=== PATIENT | female | born 1980 | race Caucasian/White ===

== ENCOUNTER → 2020-12-04 15:08 | Outpatient (BNVA) | payer OTHER, SELFPAY | PROVIDERS: PCP Internal Medicine; Visit Provider Obstetrics & Gynecology | DX: R32 Unspecified urinary incontinence (principal) | CPT/HCPCS: 81003; 99212 ==

== ENCOUNTER 2021-02-26 11:38 | Outpatient (REF) | payer OTHER, SELFPAY ==
[2021-02-26 12:48] LABS: MANUAL DIFF FLAG NO
[2021-02-26 13:00] LABS: Basophils Percent Auto 0.3 % (0-2); Eosinophils Absolute Auto 0.1 X10*3/uL (0.0-0.4); Eosinophils Percent Auto 3.7 % (0-4); Hematocrit 36.7 % (37-47); Hemoglobin 11.8 g/dl (12.0-16.0); Lymphocytes Absolute Auto 1.6 X10*3/uL (1.2-4.9); Lymphocytes Percent Auto 46.8 % (20-40); Mean Corpuscular HGB Conc 32.2 g/dl (31.0-35.0); Mean Corpuscular Hemoglobin 28.9 pg (27.0-33.0); Mean Platelet Volume 11.9 fL (9.4-12.3); Monocytes Absolute Auto 0.2 X10*3/uL (0.1-1.2); Monocytes Percent Auto 6.6 % (2-11); Neutrophils Absolute Auto 1.5 X10*3/uL (2.0-8.3); Neutrophils Percent Auto 42.6 % (45-73); Platelet Count 175 X10*3/uL (160-400); Red Blood Count 4.08 X10*6/uL (4.20-5.50); White Blood Count 3.5 X10*3/uL (4.8-10.8)
== END 2021-02-26 11:39 | disposition home or self-care (01) ==
LOC: HO.LAB 11:38
PROVIDERS: PCP Internal Medicine; Visit Provider Internal Medicine
DX: K62.5 Hemorrhage of anus and rectum (principal)
CPT/HCPCS: 36415; 85025

== ENCOUNTER 2021-05-26 13:02 | Outpatient (REF) | payer OTHER, SELFPAY ==
[2021-05-27 02:51] LABS: CT PCR NOT DETECTED (Not Detect.); NG PCR NOT DETECTED (Not Detect.)
[2021-05-27 10:14] LABS: BV Int Neg Control Negative (Negative); BV Int Pos Control Positive (Positive)
[2021-05-29 00:21] LABS: HPV mRNA E6/E7 rflx Not Detected (Not Detected)
== END 2021-05-26 13:03 | disposition home or self-care (01) ==
LOC: HO.LAB 13:02
PROVIDERS: PCP Internal Medicine; Visit Provider Advanced Practice Midwife
DX: Z01.419 Encounter for gynecological examination (general) (routine) without abnormal findings (principal); Z11.51 Encounter for screening for human papillomavirus (HPV); Z11.3 Encounter for screening for infections with a predominantly sexual mode of transmission; N92.0 Excessive and frequent menstruation with regular cycle; Z20.2 Contact with and (suspected) exposure to infections with a predominantly sexual mode of transmission
CPT/HCPCS: 87480; 87491; 87510; 87591; 87624; 87660; 88142

== ENCOUNTER 2021-06-15 11:23 | Outpatient (REF) | payer OTHER, SELFPAY ==
--- NOTE | ~2021-06-15 | US_ITS ---
EXAMINATION: US PELVIS CLINICAL INFORMATION: Excessive and frequent menstruation COMPARISON: Previous pelvic ultrasound October 2019 TECHNIQUE: Ultrasound of the pelvis is performed using both transabdominal and transvaginal transducers along with Doppler. Transvaginal imaging is performed due to inadequate visualization transabdominally. FINDINGS: The uterus is anteverted and measures 7.9 x 3.7 x 5 cm in dimension. There is a 4 x 4 by 5 mm hyperechoic lesion in the posterior uterine body probably representing a small fibroid. This is unchanged from previous exam. No other focal uterine lesion is seen. Endometrial thickness is normal measuring 0.6 cm. The cervix is normal appearing. The ovaries are normal. The right ovary measures 2.1 x 1.3 x 1.9 cm. The left ovary measures 1.8 x 1.3 x 1.3 cm. There is no fluid in the pelvis. US/US pelvic and transvaginal IMPRESSION: Small uterine fibroid otherwise unremarkable exam.
== END 2021-06-15 11:24 | disposition home or self-care (01) ==
LOC: HO.US 11:23
PROVIDERS: PCP Internal Medicine; Visit Provider Advanced Practice Midwife
DX: N92.0 Excessive and frequent menstruation with regular cycle (principal)
CPT/HCPCS: 76830; 76856

== ENCOUNTER 2021-06-29 09:02 | Outpatient (REF) | payer OTHER, SELFPAY ==
[2021-06-29 10:55] LABS: Hematocrit 36.7 % (37-47); Hemoglobin 12.2 g/dl (12.0-16.0); Mean Corpuscular HGB Conc 33.2 g/dl (31.0-35.0); Mean Corpuscular Hemoglobin 29.8 pg (27.0-33.0); Mean Corpuscular Volume 89.5 fL (80-98); Platelet Count 193 X10*3/uL (160-400); Red Cell Distribution Width 11.9 % (11.0-16.0)
[2021-06-29 13:25] LABS: Thyroid Stimulating Hormone 1.12 uIU/mL (0.32-4.0)
== END 2021-06-29 09:03 | disposition home or self-care (01) ==
LOC: HO.LAB 09:02
PROVIDERS: PCP Internal Medicine; Visit Provider Advanced Practice Midwife
DX: N93.9 Abnormal uterine and vaginal bleeding, unspecified (principal); N92.0 Excessive and frequent menstruation with regular cycle
CPT/HCPCS: 36415; 58100; 81025; 84443; 85027; 88305

== ENCOUNTER → 2021-07-13 11:14 | Outpatient (BNVA) | payer OTHER, SELFPAY | PROVIDERS: Visit Provider Advanced Practice Midwife ==

== ENCOUNTER 2021-09-09 11:41 | Outpatient (REF) | payer OTHER, SELFPAY ==
[2021-09-09 12:10] LABS: MANUAL DIFF FLAG NO
--- NOTE | 2021-09-09 12:16 | ECG_ITS ---
Test Reason : PREOP Blood Pressure : / mmHG Vent. Rate : 070 BPM Atrial Rate : 070 BPM P-R Int : 136 ms QRS Dur : 086 ms QT Int : 406 ms P-R-T Axes : 075 -30 051 degrees QTc Int : 438 ms Normal sinus rhythm Left axis deviation Possible Lateral infarct , age undetermined Abnormal ECG When compared with ECG of 28-NOV-2012 10:44, No significant change was found Referred By: Braydon Maddox Electronically Signed By:LES BELCHER MD
[2021-09-09 12:17] LABS: Basophils Percent Auto 0.3 % (0-2); Eosinophils Absolute Auto 0.2 X10*3/uL (0.0-0.4); Eosinophils Percent Auto 4.2 % (0-4); Hematocrit 38.3 % (37.0-47.0); Hemoglobin 12.2 g/dl (12.0-16.0); Imm Gran Abs Auto 0.01 X10*3/uL (0.00-0.03); Imm Gran Pct Auto 0.3 % (0.0-0.4); Lymphocytes Absolute Auto 1.7 X10*3/uL (1.2-4.9); Lymphocytes Percent Auto 48.5 % (20-40); Mean Corpuscular HGB Conc 31.9 g/dl (31.0-35.0); Mean Corpuscular Hemoglobin 29.2 pg (27.0-33.0); Mean Corpuscular Volume 91.6 fL (80.0-98.0); Monocytes Absolute Auto 0.2 X10*3/uL (0.1-1.2); Monocytes Percent Auto 6.7 % (2-11); Neutrophils Absolute Auto 1.4 x10*3/uL (2.0-8.3); Platelet Count 215 X10*3/uL (160-400); Red Blood Count 4.18 X10*6/uL (4.20-5.50); Red Cell Distribution Width 12.2 % (11.0-16.0); White Blood Count 3.6 X10*3/uL (4.8-10.8)
[2021-09-09 12:25] LABS: INTERNATIONAL NORM RATIO 1.1 (0.9-1.1); Prothrombin Time 12.6 SEC (9.9-13.0)
[2021-09-09 12:27] LABS: Partial Thromboplastin Time 38.3 SEC (24.1-38.0)
[2021-09-09 12:46] LABS: Appearance Urine CLEAR; Color Urine YELLOW; Glucose Urine UA NEG (NEG); Leukocyte Esterase Urine NEG (NEG); Nitrite Urine NEG (NEG); Specific Gravity - Urine 1.025 (1.005-1.025); UACC Culture Trigger NO; Urine Blood 2+ (NEG); Urine Ketones NEG (NEG); Urine Protein NEG (NEG-TRACE)
[2021-09-09 12:52] LABS: Blood Urea Nitrogen 13 mg/dL (9-16); Estimated Glomerular Filt Rate > 60
[2021-09-09 12:58] LABS: RBC Urine 0-2 /HPF (0); Squamous Epithelial Cell Urine 1+ /LPF
[2021-09-09 12:59] LABS: WBC Urine 0 /HPF (0-4)
[2021-09-09 13:07] LABS: Erythrocyte Sedimentation Rate 13 MM/HR (0-20)
[2021-09-09 13:14] LABS: Ferritin 42 ng/mL (10-250); HCG Quantitative < 2 mIU/mL; TSH reflex Free T4 0.87 uIU/mL (0.32-4.0)
== END 2021-09-09 11:42 | disposition home or self-care (01) ==
LOC: HO.LAB 11:41
PROVIDERS: Visit Provider Nurse Practitioner Family
DX: Z01.818 Encounter for other preprocedural examination (principal); I10 Essential (primary) hypertension
CPT/HCPCS: 36415; 81001; 82565; 82728; 84443; 84520; 84550; 84702; 85025; 85610; 85652; 85730; 93005

== ENCOUNTER → 2021-11-24 09:36 | Outpatient (BNVA) | payer OTHER, SELFPAY | PROVIDERS: PCP Internal Medicine; Referring Provider Internal Medicine; Visit Provider Internal Medicine | DX: R94.31 Abnormal electrocardiogram [ECG] [EKG] (principal) | CPT/HCPCS: 93005; 99202 ==

== ENCOUNTER 2021-12-31 09:24 | Outpatient (REF) | payer OTHER, SELFPAY ==
[2021-12-31 09:44] LABS: MANUAL DIFF FLAG NO
[2021-12-31 10:02] LABS: Basophils Percent Auto 0.3 % (0-2); Eosinophils Absolute Auto 0.1 X10*3/uL (0.0-0.4); Eosinophils Percent Auto 1.8 % (0-4); Hematocrit 36.9 % (37.0-47.0); Hemoglobin 11.9 g/dl (12.0-16.0); Imm Gran Abs Auto 0.01 X10*3/uL (0.00-0.03); Imm Gran Pct Auto 0.3 % (0.0-0.4); Lymphocytes Absolute Auto 1.5 X10*3/uL (1.2-4.9); Lymphocytes Percent Auto 40.2 % (20-40); Mean Corpuscular HGB Conc 32.2 g/dl (31.0-35.0); Mean Corpuscular Hemoglobin 28.7 pg (27.0-33.0); Mean Corpuscular Volume 89.1 fL (80.0-98.0); Mean Platelet Volume 10.9 fL (9.4-12.3); Monocytes Absolute Auto 0.3 X10*3/uL (0.1-1.2); Monocytes Percent Auto 6.6 % (2-11); Neutrophils Absolute Auto 1.9 x10*3/uL (2.0-8.3); Neutrophils Percent Auto 50.8 % (45-73); Platelet Count 199 X10*3/uL (160-400); Red Blood Count 4.14 X10*6/uL (4.20-5.50); Red Cell Distribution Width 12.4 % (11.0-16.0); White Blood Count 3.8 X10*3/uL (4.8-10.8)
[2021-12-31 10:44] LABS: Alanine Aminotransferase 24 U/L (0-31); Albumin Level 4.2 g/dL (3.5-5.0); Alkaline Phosphatase 106 U/L (39-117); Anion Gap 11 (12-20); Aspartate Amino Transferase 26 U/L (5-31); Bilirubin Total 0.5 mg/dL (0.0-1.0); Blood Urea Nitrogen 14 mg/dL (9-16); Calcium 9.4 mg/dL (8.4-10.2); Carbon Dioxide 26 mmol/L (22-29); Chloride 105 mmol/L (96-108); Cholesterol 146 mg/dL; Estimated Glomerular Filt Rate > 60; Glucose Random 88 mg/dL (60-115); HDL Cholesterol 51 mg/dL; LDL Cholesterol Calculated 86 mg/dl; Potassium 4.7 mmol/L (3.3-5.1); Sodium 137 mmol/L (135-145); Total Protein 7.2 g/dL (6.5-8.0); Triglycerides 46 mg/dL
[2021-12-31 10:54] LABS: Free T4 (Free Thyroxine) 1.11 ng/dL (0.71-1.85); Vitamin D 25-OH Total 31.4 ng/mL (>30)
[2021-12-31 11:23] LABS: Folate 16.4 ng/mL (> or = 4.0); Vitamin B12 523 pg/mL (200-900)
== END 2021-12-31 09:25 | disposition home or self-care (01) ==
LOC: HO.LAB 09:24
PROVIDERS: PCP Internal Medicine; Visit Provider Internal Medicine
DX: E78.00 Pure hypercholesterolemia, unspecified (principal); K21.9 Gastro-esophageal reflux disease without esophagitis
CPT/HCPCS: 36415; 80053; 80061; 82306; 82607; 82746; 84439; 84443; 85025

== ENCOUNTER 2022-01-26 09:17 | Outpatient (REF) | payer OTHER, SELFPAY ==
--- NOTE | ~2022-01-26 | MM_ITS ---
EXAMINATION: MM SCREENING DIGITAL BREAST TOMOSYNTHESIS, BILATERAL CLINICAL INFORMATION: Screening. Asymptomatic. Age 41. No prior breast imaging. No known family history breast cancer. The lifetime risk of breast cancer based on the Tyrer-Cuzick Model is 8%. COMPARISON: None (current study represents initial baseline exam). TECHNIQUE: Digital mammography is performed in craniocaudal and mediolateral oblique views along with computer-aided detection (CAD). Digital breast tomosynthesis is performed in implant-displaced craniocaudal and implant-displaced mediolateral oblique views along with computer-aided detection (CAD). Synthesized 2D images are generated from the tomosynthesis. Additional bilateral implant displaced MLO views are provided. FINDINGS: The breasts are heterogeneously dense, which may obscure small masses (ACR BI-RADS breast composition Category c). There are bilateral implants. Implant contours are smooth. There is no significant mass or architectural abnormality or abnormal calcifications. The axilla and skin contours are unremarkable. MM/MM tomosynthesis screen imp BI IMPRESSION: No mammographic evidence of malignancy. ASSESSMENT: BI-RADS 1: Negative RECOMMENDATION: Routine annual mammography screening. This patient's information was entered into a reminder system with a target due date for their next mammogram.
== END 2022-01-26 09:18 | disposition home or self-care (01) ==
LOC: HO.MAMMO 09:17
PROVIDERS: PCP Internal Medicine; Visit Provider Internal Medicine
DX: Z12.31 Encounter for screening mammogram for malignant neoplasm of breast (principal)
CPT/HCPCS: 77063; 77067

== ENCOUNTER → 2022-07-20 08:59 | Outpatient (BNVA) | payer OTHER, SELFPAY | PROVIDERS: PCP Internal Medicine; Visit Provider Nurse Practitioner Family | DX: G43.909 Migraine, unspecified, not intractable, without status migrainosus (principal); G47.00 Insomnia, unspecified; M47.812 Spondylosis without myelopathy or radiculopathy, cervical region | CPT/HCPCS: 99202 ==

== ENCOUNTER 2022-09-30 08:46 | Outpatient (REF) | payer OTHER, SELFPAY ==
[2022-09-30 11:43] LABS: Hematocrit 38.5 % (37.0-47.0); Hemoglobin 12.4 g/dl (12.0-16.0); Mean Corpuscular HGB Conc 32.2 g/dl (31.0-35.0); Mean Corpuscular Hemoglobin 28.9 pg (27.0-33.0); Mean Corpuscular Volume 89.7 fL (80.0-98.0); Mean Platelet Volume 11.6 fL (9.4-12.3); Platelet Count 236 X10*3/uL (160-400); Red Blood Count 4.29 X10*6/uL (4.20-5.50); Red Cell Distribution Width 12.3 % (11.0-16.0); White Blood Count 5.1 X10*3/uL (4.8-10.8)
[2022-09-30 12:40] LABS: TSH reflex Free T4 1.54 uIU/mL (0.32-4.0)
== END 2022-09-30 08:47 | disposition home or self-care (01) ==
LOC: HO.LAB 08:46
PROVIDERS: PCP Internal Medicine; Visit Provider Advanced Practice Midwife
DX: Z01.419 Encounter for gynecological examination (general) (routine) without abnormal findings (principal); N92.0 Excessive and frequent menstruation with regular cycle; R14.0 Abdominal distension (gaseous); K59.00 Constipation, unspecified; Z97.5 Presence of (intrauterine) contraceptive device
CPT/HCPCS: 36415; 84443; 85027

== ENCOUNTER 2022-09-30 10:19 | Outpatient (REF) | payer OTHER, SELFPAY ==
[2022-09-30 14:29] LABS: CT PCR NOT DETECTED (Not Detect.); NG PCR NOT DETECTED (Not Detect.)
[2022-10-01 14:07] LABS: BV Int Neg Control Negative (Negative); BV Int Pos Control Positive (Positive)
[2022-10-03 18:24] LABS: HPV mRNA E6/E7 rflx Not Detected (Not Detected)
== END 2022-09-30 10:20 | disposition home or self-care (01) ==
LOC: HO.LNP 10:19
PROVIDERS: Visit Provider Advanced Practice Midwife
DX: Z01.419 Encounter for gynecological examination (general) (routine) without abnormal findings (principal); N92.0 Excessive and frequent menstruation with regular cycle
CPT/HCPCS: 0353U; 87480; 87510; 87624; 87660; 88142

== ENCOUNTER 2022-11-17 14:12 | Outpatient (REF) | payer OTHER, SELFPAY ==
--- NOTE | ~2022-11-17 | US_ITS ---
EXAMINATION: US PELVIS CLINICAL INFORMATION: Excessive and frequent menses; the last menstrual period was on 11/03/2022. COMPARISON: Pelvic ultrasound dated 06/15/2021. TECHNIQUE: Ultrasound of the pelvis is performed using both transabdominal and transvaginal transducers along with Doppler. Transvaginal imaging is performed due to inadequate visualization transabdominally. FINDINGS: Uterus: The uterus is anteverted and measures 9.0 x 4.0 x 4.6 cm. The double wall endometrial thickness is 1.0 mm. The uterus is smooth in contour and has normal myometrial echogenicity. No visible fibroid. Adnexa: Both ovaries are visualized. There is normal color flow to the adnexa. There is no ovarian torsion. There is no pelvic ascites or fluid collection. Right ovary measures 2.2 x 1.2 x 2.0 cm, volume 2.9 mL. Left ovary measures 3.2 x 1.8 x 2.9 cm, volume 8.7 mL. A 1.4 x 0.8 x 1.3 cm hemorrhagic left ovarian cyst is seen, with characteristic internal reticulated contents. US/US pelvic and transvaginal IMPRESSION: A 1.4 cm hemorrhagic left ovarian cyst is incidentally noted. The examination is otherwise unremarkable.
== END 2022-11-17 14:13 | disposition home or self-care (01) ==
LOC: HO.US 14:12
PROVIDERS: PCP Internal Medicine; Visit Provider Advanced Practice Midwife
DX: N92.0 Excessive and frequent menstruation with regular cycle (principal)
CPT/HCPCS: 76830; 76856

== ENCOUNTER → 2022-12-03 14:06 | Outpatient (BNVA) | payer OTHER, SELFPAY | PROVIDERS: Visit Provider Advanced Practice Midwife ==

== ENCOUNTER 2022-12-29 09:24 | Emergency (ER) | payer OTHER, SELFPAY ==
[2022-12-29 09:36] VITALS: BP 114/72; PULSE 75; RESP 18; TEMP 37; O2SAT 98; BMI 30.2
--- NOTE | 2022-12-29 09:55 | ED_ITS ---
HPI - General Adult General Chief complaint: General Medical Stated complaint: dizziness/ SOB Time Seen by Provider: 12/29/22 09:55 Source: patient Mode of arrival: ambulatory Limitations: no limitations History of Present Illness HPI narrative: Patient is a 42 year old assigned female at with a history of asthma and seasonal allergies presenting to the emergency department today with congestion for 2 months that has worsened over the past week. Patient states that she has trouble inhaling through her nose but denied SOB or CP. Patient denies any dizziness, lightheadedness, abdominal pain, nausea, vomiting, fever, chills, blurry vision, double vision, loss of vision, chest pain, shortness of breath, back pain, night sweats, pain with urination, increased urinary frequency, increased urinary urgency, blood in her urine or stool, syncope or a near syncopal episode, recent trauma or falls, bowel incontinence, bladder incontinence, bowel retention, bladder retention, or any other complaints at this time. MD complaint: congestion Onset (ago): month(s) (2) Severity: mild Severity scale (1-10): 1 Relieving factors: other (Symbicort inhaler) Exacerbating factors: none Associated symptoms: denies other symptoms Treatments prior to arrival: other (Symbicort inhaler) Related Data Home Medications Medication Instructions Recorded Confirmed fluticasone propionate 50 2 spray intranasal DAILY 11/25/20 07/20/22 mcg/actuation nasal spray,suspension aspirin 81 mg tablet,delayed 81 mg PO .3-4x/week 11/24/21 07/20/22 release Previous Rx's Medication Instructions Recorded fexofenadine 180 mg tablet 180 mg PO DAILY #90 tabs 01/06/21 (Heather Allergy) omeprazole 20 mg capsule,delayed 20 mg PO DAILY 90 days #90 caps 09/09/21 release budesonide-formoterol HFA 160 2 puff inhalation BID #10.2 grams 12/31/21 mcg-4.5 mcg/actuation aerosol inhaler (Symbicort) albuterol sulfate 90 mcg/actuation 2 puff inhalation Q4-6H PRN for 05/19/22 aerosol inhaler (ProAir HFA) muscle spasm #8.5 ea magnesium glycinate 100 mg tablet 200 mg PO DAILY migraine 30 days 07/20/22 #60 tabs amitriptyline 10 mg tablet 10 mg PO BEDTIME for insomnia 30 08/23/22 days #30 tabs ibuprofen 400 mg tablet 400 mg PO Q6H PRN pain #30 tabs 09/21/22 benzonatate 100 mg capsule 100 mg PO BID-TID PRN cough #14 10/13/22 caps polyethylene glycol 3350 17 gram 17 g PO DAILY #100 ea 10/22/22 oral powder packet (Miralax) riboflavin (vitamin B2) 400 mg 400 mg PO DAILY for migraine 30 10/22/22 tablet days #30 tabs cholecalciferol (vitamin D3) 25 25 mcg PO DAILY #90 caps 12/22/22 mcg (1,000 unit) capsule loratadine 10 mg tablet 10 mg PO DAILY PRN allergic 12/29/22 symptoms #14 tabs Allergies Allergy/AdvReac Type Severity Reaction Status Date / Time SEASONAL ALLERGIES Allergy Intermediate ITCHY Uncoded 12/03/22 14:08 EYES/RUNNY NOSE Review of Systems Review of Systems: Yes all other systems are reviewed and are negative Constitutional: Constitutional: Reports no additional constitutional complaints, Denies chills, Denies fever(s) and Denies night sweats Eyes: Eyes: Reports no additional eye complaints, Denies blurry vision, Denies change in vision, Denies diplopia, Denies eye discharge, Denies loss of vision and Denies eye pain ENT: Denies dizziness and Reports nasal congestion Cardiovascular: Cardiovascular: Reports no additional cardiovascular complai nts, Denies chest pain, Denies lightheadedness, Denies Loss of Consciousness and Denies dyspnea Respiratory: Respiratory: Reports no additional respiratory complaints and Denies dyspnea Gastrointestinal: Gastrointestinal: Reports no additional gastrointestinal complaints, Denies abdominal pain, Denies melena, Denies hematochezia, Denies change in bowel habits and Denies change in stool character Genitourinary: Genitourinary: Denies hematuria, Denies urinary frequency, Denies dysuria, Denies urinary incontinence, Denies urinary hesitancy and Denies urinary urgency Musculoskeletal: Musculoskeletal: Reports no additional musculoskeletal complaints, Denies numbness and Denies tingling Neurologic: Denies dizziness, Denies loss of vision, Denies numbness and Denies tingling Psychiatric: Psychiatric: Reports no additional psychiatric complaints Endocrine: Endocrine: Reports no additional endocrine complaints Hematologic/Lymphatic: Hematologic/Lymphatic: Reports no additional hematolog ic/lymphatic complaints Allergic/Immunologic: Allergic/Immunologic: Reports no additional allergic/immunologic complaints PMFSH Past Medical History Attestation statement: The following information was validated with the patient. Source: old records reviewed and nursing notes reviewed Medical History Allergic rhinitis Asthma COVID-19 virus infection GERD (gastroesophageal reflux disease) Intermittent asthma Migraine OAB (overactive bladder) Vaginal prolapse Vitamin D deficiency Surgical History H/O breast augmentation H/O LEEP H/O tubal ligation H/O vaginal surgery S/P panniculectomy Family History Family History Father No problems noted. Mother No problems noted. Maternal Grandmother Diabetes Glaucoma Social History Social History Housing: House Alcohol intake: never Patient Tobacco Use Status: Never used Tobacco e-Cigarette/Vaping Use: Never Used Second Hand Smoke Exposure: No Advance Directives: No service: No Current occupational status: unemployed Cognitive needs: No Hearing needs: No Vision needs: No Physical Exam ED Vital Signs: Vital Signs - 24 hr 12/29/22 09:36 Temperature 98.6 F Pulse Rate 75 Respiratory Rate 18 Blood Pressure 114/72 Pulse Oximetry 98 Oxygen Delivery Method Room Air BMI result Body Mass Index 30.2 Const General: cooperative, no acute distress, alert and awake Nutritional Appearance: well nourished Orientation/consciousness: patient oriented x3 Limitations: no limitations [facility] Head: Yes normal to inspection and Yes atraumatic Ears: hearing grossly normal bilaterally General nose exam: Normal external nose present, Normal nares present and Nasal discharge present clear bilateral Face and sinus: Yes normal facial exam, No abrasion and No laceration Mouth: Normal oral and palatal mucosa present Eyes General: appearance normal, both eyes and all related structures Periorbital: periorbital findings normal Eyelids: Yes eyelids normal Conjunctivae: conjunctivae normal Pupils: Equal, round and reactive pupils present EOM: EOMs intact bilaterally Neck Neck: Yes normal visual inspection, Yes full ROM and Yes no lymphadenopathy Chest Chest palpation & inspection: normal inspection of the chest Resp Effort & Inspection: normal respiratory effort Auscultation: clear to auscultation bilaterally, no crackles, no rales, no rhonchi and no wheezes Cardio Rate: regular rate Rhythm: regular rhythm Heart sounds: S1 normal heart sound present, S2 normal heart sound present, no gallops, no murmurs and no rubs GI Inspection: Yes normal to inspection Neuro General: patient oriented x3 and moves all extremities Cranial nerves: Yes Equal, round and reactive pupils present Cognition (Neuro): normal cognition Motor exam (neuro): 5/5 motor strength present throughout Sensory Exam: Normal double simultaneous stimulation for sensation Coordination: [id number] test normal Extrem General: Yes normal to inspection, Yes full ROM and Yes capillary refill normal Psych Appearance: grossly normal Mental Status: mental status grossly normal Affect: normal affect Attitude: cooperative Thought process: Normal thought process present Thought content: Normal thought content present Insight: Good insight present (Psych) Medical Decision Making Medical Decision Making MDM Narrative: Patient is a 42 year old assigned female at with a history of asthma and seasonal allergies presenting to the emergency department today with nasal congestion for 2 months that has worsened over the past week. Patient's physical exam was unremarkable. Patient refused CXR, COVID-19, influenza, or RSV swabs. I explained my physical exam findings to the patient. I answered all questions asked by the patient. Patient received a loratadine prescription and was advised to take an anti-histamine regularly for her allergies. I stressed the importance of the patient taking her medication as prescribed. I stressed the importance of the patient following up with her primary care provider. I stressed the importance of the patient returning to the emergency department immediately if her symptoms were to worsen or if she were to develop any dizziness, shortness of breath, difficulty breathing, chest pain, blurry vision, loss of vision, nausea, vomiting, abdominal pain, fever, chills, back pain, or any other complaints. Patient verbalized agreement and understanding with this treatment plan and discharge. Differential Diagnosis Differential Diagnoses: The differential diagnosis associated with the presentation includes seasonal allergies Discharge Plan Discharge Clinical Impression: Seasonal allergies Patient Disposition: Home, Self-Care Instructions: Allergies (ED) Additional Instructions: Follow up with your primary care provider. Return to the emergency department immediately if your symptoms worsen or if you develop any dizziness, shortness of breath, difficulty breathing, chest pain, blurry vision, loss of vision, nausea, vomiting, abdominal pain, fever, chills, back pain, or any other complaints. Prescriptions: New loratadine 10 mg tablet 10 mg PO DAILY PRN (Reason: allergic symptoms) Qty: 14 0RF No Action fexofenadine [Heather Allergy] 180 mg tablet 180 mg PO DAILY Qty: 90 2RF albuterol sulfate [ProAir HFA] 90 mcg/actuation HFA aerosol inhaler 2 puff inhalation Q4-6H PRN (Reason: for muscle spasm) Qty: 8.5 1RF amitriptyline 10 mg tablet 10 mg PO BEDTIME 30 Days Qty: 30 0RF ibuprofen 400 mg tablet 400 mg PO Q6H PRN (Reason: pain) Qty: 30 0RF Rx Instructions: Please take medication with food to prevent GI upset benzonatate 100 mg capsule 100 mg PO BID-TID PRN (Reason: cough) Qty: 14 0RF polyethylene glycol 3350 [Miralax] 17 gram powder in packet 17 g PO DAILY Qty: 100 0RF riboflavin (vitamin B2) 400 mg tablet 400 mg PO DAILY 30 Days Qty: 30 5RF cholecalciferol (vitamin D3) 25 mcg (1,000 unit) capsule 25 mcg PO DAILY Qty: 90 3RF fluticasone propionate 50 mcg/actuation spray,suspension 2 spray intranasal DAILY Rx Instructions: administer into each nostril omeprazole 20 mg capsule,delayed release(DR/EC) 20 mg PO DAILY 90 Days Qty: 90 1RF budesonide-formoterol [Symbicort] 160-4.5 mcg/actuation HFA aerosol inhaler 2 puff inhalation BID Qty: 10.2 11RF magnesium glycinate 100 mg tablet 200 mg PO DAILY 30 Days Qty: 60 0RF aspirin 81 mg tablet,delayed release (DR/EC) 81 mg PO .3-4x/week Referrals: Po,Concetta Blackburn MD [Primary Care Provider] - Stand Alone Forms: Work/School Release Interventions: ED Discharge Assessment Last Done: 12/29/22 10:44 Discharge Date/Time: 12/29/22 10:45 Print Language: Azeri
== END 2022-12-29 10:45 | disposition home or self-care (01) ==
PROVIDERS: Emergency Provider Emergency Medicine Emergency Medical Services; PCP Internal Medicine
DX: J30.2 Other seasonal allergic rhinitis (principal); J45.909 Unspecified asthma, uncomplicated
CPT/HCPCS: 99283

== ENCOUNTER 2023-02-11 08:03 | Outpatient (REF) | payer OTHER, SELFPAY ==
--- NOTE | ~2023-02-11 | MM_ITS ---
EXAMINATION: MM SCREENING DIGITAL BREAST TOMOSYNTHESIS, BILATERAL CLINICAL INFORMATION: Screening. Asymptomatic. The lifetime risk of breast cancer based on the Tyrer-Cuzick Model is 7%. COMPARISON: Mammography: 01/26/2022 (baseline). TECHNIQUE: Digital mammography is performed in craniocaudal and mediolateral oblique views along with computer-aided detection (CAD). Digital breast tomosynthesis is performed in implant-displaced craniocaudal and implant-displaced mediolateral oblique views along with computer-aided detection (CAD). Synthesized 2D images are generated from the tomosynthesis. FINDINGS: The breasts are heterogeneously dense, which may obscure small masses (ACR BI-RADS breast composition Category c). There are no significant masses, abnormal calcifications, or other abnormalities. No architectural abnormality or developing density or significant change from baseline exam. There are bilateral implants. Contours are smooth and similar to baseline exam. MM/MM tomosynthesis screen imp BI IMPRESSION: No mammographic evidence of malignancy. ASSESSMENT: BI-RADS 1: Negative RECOMMENDATION: Routine annual mammography screening. This patient's information was entered into a reminder system with a target due date for their next mammogram.
== END 2023-02-11 08:04 | disposition home or self-care (01) ==
LOC: HO.MAMMO 08:03
PROVIDERS: PCP Internal Medicine; Visit Provider Internal Medicine
DX: Z12.31 Encounter for screening mammogram for malignant neoplasm of breast (principal)
CPT/HCPCS: 77063; 77067

== ENCOUNTER 2023-07-07 09:05 | Outpatient (AMB) | payer OTHER, SELFPAY ==
--- NOTE | 2023-07-07 09:35 | AM.OFFWIN_ITS ---
Intake Vital Signs 07/07/23 09:38 Height 5 ft 2 in Weight 165 lb BMI 30.2 BP 100/62 Blood Pressure Location Lt brachial Position Sitting Pulse 67 Pulse Source Pulse Oximeter Temp 96.8 F Temp Source Temporal Artery Scan Pulse Oximetry (%) 99 Intake Visit Reasons: EP Sore throat Intake Note: Pt is here c/o sore throat for the last two days. Pt states she can feel a lump that is bothering her. Patient Tobacco Use Status: Never used Tobacco Allergies SEASONAL ALLERGIES Allergy (Intermediate, Uncoded 07/07/23 09:39) ITCHY EYES/RUNNY NOSE Do you need a note to return to daycare/school/sports/work: No HPI HPI Comments History of Present Illness Details 42-year-old female presents for sore thr oat. Patient feels that she has a workup for the left side her throat slightly painful when she swallows. Denies fever chills. PFS Medical History (Updated 03/31/23 @ 11:19 by Concetta Wyman MD) COVID-19 virus infection Intermittent asthma OAB (overactive bladder) Vaginal prolapse GERD (gastroesophageal reflux disease) Vitamin D deficiency Allergic rhinitis Migraine Asthma Surgical History (Updated 03/31/23 @ 11:03 by Concetta Wyman MD) H/O breast surgery H/O LEEP H/O tubal ligation S/P panniculectomy H/O vaginal surgery H/O breast augmentation Family History Father No problems noted. Mother No problems noted. Maternal Grandmother Diabetes Glaucoma Social History Housing: House Alcohol intake: never Patient Tobacco Use Status: Never used Tobacco e-Cigarette/Vaping Use: Never Used Second Hand Smoke Exposure: No service: No Current occupational status: unemployed Cognitive needs: No Hearing needs: No Vision needs: No Female Reproductive History Menstrual Age of Menarche: 12 Review of Systems ENT Reports sore throat Physical Exam Vital Signs: Last Vital Signs Temp 96.8 F 07/07/23 09:38 Pulse 67 07/07/23 09:38 BP 100/62 07/07/23 09:38 Pulse Ox 99 07/07/23 09:38 BMI result Body Mass Index 30.2 Const General: healthy appearing, comfortable, no acute distress and alert Orientation/consciousness: patient oriented x3 Limitations: no limitations HEENT Other: No erythema in the posterior pharynx uvula midline no trismus no muffled voice. Mild tenderness to palpation in the left salivary gland. Head: Yes normal to inspection Ears: hearing grossly normal bilaterally Resp Effort & Inspection: normal respiratory effort and able to speak in complete sentences Cardio Rate: regular rate Skin General skin exam: no rashes or lesions noted Neuro General: patient oriented x3 Extrem General: Yes normal to inspection Results AMB Rapid Strep 2 AMB Rapid Strep Negative Last Edit by Nat Mack CMA on 07/07/23 09:52 Results Reviewed Results Reviewed: Laboratory Last Values Strep Scn [facility] Negative 07/07/23 09:44 Assessment & Plan Assessment & Plan (1) Sialadenitis: Code(s): K11.20 - Sialoadenitis, unspecified Plan: Symptoms consistent with sialadenitis. Recommend hard candies warmth and gentle massage. Discharge instructions, follow up and treatment are discussed with patient in my usual fashion. Alternatives in treatment are also discussed. The patient will return for worsening symptoms or as needed. Advised that any labs/imaging ordered will be followed up on and contact made if further treatment needed. Counseled that patient's condition may require further evaluation and/or treatment. Symptoms of concern for worsening disorder discussed in detail in my customary manner. Patient does verbalize understanding of the plan, there are no apparent barriers to communication. The patient is given the opportunity to ask questions and have them answered to his/her satisfaction Orders: Orders AMB Rapid Strep Screen Today Z13.9 - Encounter for screening, unspecified Coding Level of Care Code Est Pt Level 3 (15188) Diagnoses Sialadenitis K11.20
--- NOTE | 2023-07-07 09:35 | AM.OFFWIN_ITS ---
Intake Vital Signs 07/07/23 09:38 Height 5 ft 2 in Weight 165 lb BMI 30.2 BP 100/62 Blood Pressure Location Lt brachial Position Sitting Pulse 67 Pulse Source Pulse Oximeter Temp 96.8 F Temp Source Temporal Artery Scan Pulse Oximetry (%) 99 Intake Visit Reasons: EP Sore throat Patient Tobacco Use Status: Never used Tobacco Allergies SEASONAL ALLERGIES Allergy (Intermediate, Uncoded 07/07/23 09:39) ITCHY EYES/RUNNY NOSE PFSH Medical History (Updated 03/31/23 @ 11:19 by Concetta Wyman MD) COVID-19 virus infection Intermittent asthma OAB (overactive bladder) Vaginal prolapse GERD (gastroesophageal reflux disease) Vitamin D deficiency Allergic rhinitis Migraine Asthma Surgical History (Updated 03/31/23 @ 11:03 by Concetta Wyman MD) H/O breast surgery H/O LEEP H/O tubal ligation S/P panniculectomy H/O vaginal surgery H/O breast augmentation Family History Father No problems noted. Mother No problems noted. Maternal Grandmother Diabetes Glaucoma Social History Housing: House Alcohol intake: never Patient Tobacco Use Status: Never used Tobacco e-Cigarette/Vaping Use: Never Used Second Hand Smoke Exposure: No service: No Current occupational status: unemployed Cognitive needs: No Hearing needs: No Vision needs: No Female Reproductive History Menstrual Age of Menarche: 12 Physical Exam Vital Signs: Last Vital Signs Temp 96.8 F 07/07/23 09:38 Pulse 67 07/07/23 09:38 BP 100/62 07/07/23 09:38 Pulse Ox 99 07/07/23 09:38 BMI result Body Mass Index 30.2 Results AMB Rapid Strep AMB Rapid Strep Negative Last Edit by Nat Mack CMA on 07/07/23 09:52 Results Reviewed Results Reviewed: Laboratory Last Values Strep Scn [facility] Negative 07/07/23 09:44 Assessment & Plan Assessment & Plan Orders: Orders AMB Rapid Strep Screen Today Z13.9 - Encounter for screening, unspecified Coding
[2023-07-07 09:38] VITALS: BP 100/62; PULSE 67; TEMP 36; O2SAT 99; BMI 30.2
== END 2023-07-07 10:04 | disposition home or self-care (01) ==
PROVIDERS: PCP Internal Medicine; Visit Provider Physician Assistant
DX: K11.20 Sialoadenitis, unspecified (principal); J02.9 Acute pharyngitis, unspecified
CPT/HCPCS: 87880; 99213

== ENCOUNTER 2023-08-08 09:34 | Outpatient (AMB) | payer OTHER, SELFPAY ==
[2023-08-08 09:34] VITALS: BP 94/60; PULSE 69; O2SAT 100; BMI 29.3
--- NOTE | 2023-08-08 09:34 | MHC.PC.OV ---
Vital Signs 08/08/23 09:34 Height 5 ft 2 in Weight 160 lb BMI 29.3 BP 94/60 Blood Pressure Location Lt brachial Position Sitting Pulse 69 Pulse Source Pulse Oximeter Temp Source Skin Pulse Oximetry (%) 100 Oxygen Delivery Method Room Air Intake Visit Reasons: Rash Intake Note: pt states seen at urgent care for throat swelling and cough. pt states on going cough with no relief Ship/Rec/Doc Control Required: No Allergies SEASONAL ALLERGIES Allergy (Intermediate, Uncoded 08/08/23 09:35) ITCHY EYES/RUNNY NOSE Tobacco use date assessed: 08/08/23 Dental Screening Dental Screen Date: 08/08/23 Did you have a dental visit in the last 12 months?: Yes Did you have a dental problem in the last 6 months where you did not have access to dental care?: No Was dental information given to patient?: Patient has dentist HPI HPI Comments History of Present Illness Details 42-year-old female past medical history significant for GERD, asthma, mild anemia, cervical spondylosis. Patient Dr. Wyman presents today for ongoing dry cough x1 month. Patient denies any fever, chills, shortness of breath denies any sinus pain or pressure. Patient reports occasional nasal congestion and postnasal drip, does have history of seasonal allergies. Patient reports was previously on Heather and Flonase for this however she has run out of her medication. Refill sent. [facility] Medical History (Updated 03/31/23 @ 11:19 by Concetta Wyman MD) COVID-19 virus infection Intermittent asthma OAB (overactive bladder) Vaginal prolapse GERD (gastroesophageal reflux disease) Vitamin D deficiency Allergic rhinitis Migraine Asthma Surgical History (Updated 03/31/23 @ 11:03 by Concetta Wyman MD) H/O breast surgery H/O LEEP H/O tubal ligation S/P panniculectomy H/O vaginal surgery H/O breast augmentation Family History Father No problems noted. Mother No problems noted. Maternal Grandmother Diabetes Glaucoma Social History Housing: House Alcohol intake: never Patient Tobacco Use Status: Never used Tobacco e-Cigarette/Vaping Use: Never Used Second Hand Smoke Exposure: No service: No Current occupational status: unemployed Cognitive needs: No Hearing needs: No Vision needs: No Female Reproductive History Menstrual Age of Menarche: 12 Questionnaire Thrive Questionnaire Date Thrive assessed: 03/31/23 AUDIT C Alcohol Use Questionnaire (AUDIT-C) 1. How often do you have a drink containing alcohol?: Never 2. How many drinks containing alcohol do you have on a typical day when you are drinking?: 1 or 2 (0) 3. How often do you have six or more drinks on one occasion?: Never Total Score: 0 Score Reviewed/Action Taken: No YANIRA-7 AMB Questionnaire YANIRA-7 Date YANIRA - 7 assessed: 03/31/23 Source: Developed by Drs. Oliver Harrison, Aparna Cook, Eliel Gomes and colleagues, with an educational loc from [employer]. Review of Systems Const Denies chills, Denies fatigue, Denies fever(s) and Denies poor appetite Eyes Denies no additional complaints ENT Reports Normal hearing present, Denies otalgia, Reports nasal congestion, Reports nasal discharge, Denies sinus pain, Denies sinus pressure and Denies sore throat Card Denies chest pain, Denies syncope, Denies rapid heart rate and Denies dyspnea Resp Denies chest congestion, Reports cough (dry cough), Denies excessive phlegm production and Denies dyspnea GI Denies change in stool character, Denies constipation, Denies diarrhea, Denies nausea and Denies vomiting Denies urinary frequency, Denies dysuria and Denies urinary urgency Neuro Reports Normal hearing present, Denies confusion and Denies syncope Psych Denies confusion Endo Denies fatigue Physical exam (Primary Care) Vital Signs: Last Vital Signs Pulse 69 08/08/23 09:34 BP 94/60 08/08/23 09:34 Pulse Ox 100 08/08/23 09:34 Oxygen Delivery Method Room Air 08/08/23 09:34 BMI result Body Mass Index 29.3 Tobacco/Smoking Status: Tobacco use Status Tobacco use date assessed 08/08/23 08/08/23 09:39 Patient Tobacco Use Status Never used Tobacco 08/08/23 09:39 e-Cigarette/Vaping Use Never Used 08/08/23 09:39 Thrive Assessment: Date of Thrive Assessment Date Thrive assessed 03/31/23 08/08/23 09:39 Const General: No confusion Orientation/consciousness: No confusion HENMT Head: Yes normocephalic and Yes atraumatic Eyes Conjunctivae: conjunctivae normal Chest Chest palpation & inspection: normal inspection of the chest Resp Effort & Inspection: normal respiratory effort Auscultation: clear to auscultation bilaterally, no crackles, no rhonchi and no wheezes Cardio Rate: regular rate Rhythm: regular rhythm Heart sounds: S1 normal heart sound present and S2 normal heart sound present GI Inspection: Yes normal to inspection Neuro General: No confusion Cranial nerves: Yes Normal hearing present Extrem General: No edema Assessment and Plan Assessment & Plan (1) Seasonal allergies: Code(s): J30.2 - Other seasonal allergic rhinitis Plan: Flonase and Heather sent to patient's pharmacy for dry cough likely related to postnasal drip. Signs and symptoms reviewed with patient when to follow-up for seek medical attention. Patient agreeable to plan of care Plan Keep scheduled follow-up with PCP or follow-up sooner if needed Medications: Refilled fexofenadine (Heather Allergy) 180 mg PO DAILY 90 tabs 2RF fluticasone propionate 50 mcg/actuation administer into each nostril 2 sprays intranasal DAILY 16 grams 5RF Coding Level of Care Code Est Pt Level 3 (74322) Diagnoses Seasonal allergies J30.2
== END 2023-08-08 10:28 | disposition home or self-care (01) ==
PROVIDERS: PCP Internal Medicine; Visit Provider Nurse Practitioner Family
DX: J30.2 Other seasonal allergic rhinitis (principal)
CPT/HCPCS: 99213

== ENCOUNTER 2023-10-04 10:29 | Outpatient (AMB) | payer OTHER, SELFPAY ==
--- NOTE | 2023-10-04 10:32 | MHC.OFFVIS ---
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 Doing well with no concerns. She tries to eat healthy and stays active with exercise. Regular monthly menses. Currently is sexually active. She denies vaginal itching and irritation. STI screening offered; she accepts. Denies family history of breast, ovarian or colon cancer. Last pap smear ASCUS. [facility] Medical History COVID-19 virus infection Intermittent asthma OAB (overactive bladder) Vaginal prolapse GERD (gastroesophageal reflux disease) Vitamin D deficiency Allergic rhinitis Migraine Asthma Surgical History H/O breast surgery H/O LEEP H/O tubal ligation S/P panniculectomy H/O vaginal surgery H/O breast augmentation Family History Father No problems noted. Mother No problems noted. 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 Cognitive needs: No Hearing needs: No Vision needs: No Female Reproductive History Menstrual Age of Menarche: 12 Duration of menses: 3-5 days Date of last menstrual period: 09/25/23 control method: permanent sterilization Total pregnancies: 3 Full term: 3 Date of last pap smear: 09/30/22 (epithelial abnormality cell) History of abnormal pap smear: Yes Review of Systems Const All systems reviewed & are unremarkable except as noted in HPI and below Reports as per HPI Eyes Reports no additional complaints ENT Reports no additional complaints Card Reports no additional complaints Resp Reports no additional complaints GI Reports as per HPI and Reports no additional complaints Reports as per HPI Musc Reports no additional complaints Skin/Breast Reports as per HPI Neuro Reports no additional complaints Psych Reports no additional complaints Endo Reports no additional complaints Steven/Lymph Reports no additional complaints Aller/Immun Reports no additional complaints Physical Exam Vital Signs: Last Vital Signs BP 100/62 10/04/23 10:41 Const General: cooperative, healthy appearing, no acute distress, well developed and alert Orientation/consciousness: patient oriented x3 HEENT Head: Yes normal to inspection Eyes General: appearance normal, both eyes and all related structures Neck Neck: Yes normal visual inspection Thyroid: Thyroid normal Chest Other: Bilateral breast reconstruction scars and implants Chest palpation & inspection: normal inspection of the chest and other (no puckering, dimpling, peau de orange, retraction, discharge, masses) Breast/axilla inspection: normal inspection of the breasts Breast/axilla palpation: normal palpation of the breasts Resp Effort & Inspection: normal respiratory effort GI Inspection: Yes normal to inspection and Yes scar Palpation (GI): Soft to palpation Rectal Exam - Female: deferred General: Yes bladder normal to palpation External Female Exam: normal external appearance and normal appearance of the urethra Speculum Exam - Vagina: normal appearance of the vagina, normal palpation and normal vaginal discharge Speculum Exam - Cervix: normal appearance of the cervix, normal palpation and Other cervical findings present (Post LEEP appearance) Bimanual exam- vagina & uterus: normal bimanual exam, normal palpation, uterine size normal, bladder normal to palpation, normal palpation and non-tender Bimanual Exam- Adnexa, other: no masses Skin General skin exam: no rashes or lesions noted Rashes: no rashes Neuro General: patient oriented x3 Cognition (Neuro): normal cognition Extrem General: Yes normal to inspection Psych Attitude: cooperative Thought process: Normal thought process present Assessment & Plan Assessment & Plan (1) Encounter for well woman exam with routine gynecological exam: Code(s): Z01.419 - Encounter for gynecological examination (general) (routine) without abnormal findings (2) History of abnormal cervical Pap smear: Code(s): Z87.42 - Personal history of other diseases of the female genital tract Plan Discussed: Current recommendations for pap smears per ASCCP guidelines. Post LEEP, CINI, ASCUS. Breast awareness and periodic breast exams. Maintain a healthy lifestyle including a well balanced diet and routine exercise. Mammogram yearly. Colonoscopy >45, or at risk sooner. All of her questions and concerns were addressed to the best of my ability. 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 This note is constructed using voice recognition software. While every effort has been made to ensure accuracy, analytical laboratory technician errors may have been included. Coding Level of Care Code Est Pt Prev Care 40-64y(22090) Diagnoses Encounter for well woman exam with routine gynecological exam Z01.419 History of abnormal cervical Pap smear Z87.42
[2023-10-04 10:41] VITALS: BP 100/62
== END 2023-10-04 11:32 | disposition home or self-care (01) ==
LOC: HO.HWS 10:29
PROVIDERS: PCP Internal Medicine; Visit Provider Advanced Practice Midwife
DX: Z01.419 Encounter for gynecological examination (general) (routine) without abnormal findings (principal); Z87.42 Personal history of other diseases of the female genital tract
CPT/HCPCS: 99396

== ENCOUNTER 2023-10-04 10:29 | Outpatient (REF) | payer OTHER, SELFPAY ==
[2023-10-08 13:39] LABS: HPV mRNA E6/E7 rflx Not Detected (Not Detected)
== END 2023-10-04 10:30 | disposition home or self-care (01) ==
LOC: HO.LAB 10:29
PROVIDERS: PCP Internal Medicine; Visit Provider Advanced Practice Midwife
DX: Z01.419 Encounter for gynecological examination (general) (routine) without abnormal findings (principal); Z11.51 Encounter for screening for human papillomavirus (HPV); Z87.42 Personal history of other diseases of the female genital tract
CPT/HCPCS: 87624; 88142; 99396

== ENCOUNTER 2023-11-02 16:51 | Outpatient (AMB) | payer OTHER, SELFPAY ==
--- NOTE | 2023-11-02 16:52 | MHC.PC.OV ---
Intake Visit Reasons: covid + Intake Note: Telephone visit positive covid medication request Tour Consultant Required: No Allergies SEASONAL ALLERGIES Allergy (Intermediate, Uncoded 11/02/23 16:53) ITCHY EYES/RUNNY NOSE Medication List - Last Reconciled 11/02/23 by Concetta Wyman MD albuterol sulfate 90 mcg/actuation (ProAir HFA) 2 puffs inhalation Q4-6H PRN aspirin 81 mg PO .3-4x/week budesonide-formoterol 160-4.5 mcg/actuation (Symbicort) 2 puffs inhalation BID cholecalciferol (vitamin D3) 25 mcg PO DAILY fexofenadine (Heather Allergy) 180 mg PO DAILY fluticasone propionate 50 mcg/actuation 2 sprays intranasal DAILY glycopyrronium tosylate 2.4% 1 appl topical DAILY ibuprofen 400 mg PO Q6H PRN nirmatrelvir-ritonavir 300 mg (150 mg x 2)-100 mg (Paxlovid) take TWO 150 mg tablets of nirmatrelvir with ONE 100 mg tablet of ritonavir twice daily for 5 days PO omeprazole 20 mg PO DAILY 90 days polyethylene glycol 3350 (Miralax) 17 grams PO DAILY riboflavin (vitamin B2) 400 mg PO DAILY 30 days Tobacco use date assessed: 11/02/23 Dental Screening Dental Screen Date: 11/02/23 Did you have a dental visit in the last 12 months?: Yes Did you have a dental problem in the last 6 months where you did not have access to dental care?: No Was dental information given to patient?: Patient has dentist HPI covid + HPI Details 42-year-old overweight female with a history of asthma and GERD calling in for an acute problem. COVID 19 infection 3rd time sore throat, HODGE, no fevers, coushging runny nose PFSH Medical History (Updated 11/02/23 @ 16:58 by Concetta Wyman MD) COVID-19 virus infection Intermittent asthma OAB (overactive bladder) Vaginal prolapse GERD (gastroesophageal reflux disease) Vitamin D deficiency Allergic rhinitis Migraine Asthma Surgical History H/O breast surgery H/O LEEP H/O tubal ligation S/P panniculectomy H/O vaginal surgery H/O breast augmentation Family History Father No problems noted. Mother No problems noted. 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 1. Little interest or pleasure in doing things: not at all 2. Feeling down, depressed, or hopeless: not at all 3. Trouble falling or staying asleep, or sleeping too much: not at all 4. Feeling tired or having little energy: not at all 5. Poor appetite or overeating: not at all 6. Feeling bad about yourself - or that you are a failure or have let yourself or your family down: not at all 7. Trouble concentrating on things, such as reading the newspaper or watching television: not at all 8. Moving or speaking so slowly that other people could have noticed. Or the opposite - being so fidgety or restless that you have been moving around a lot more than usual: not at all 9. Thoughts that you would be better off or of hurting yourself in some way: not at all Total score: 0 Source: Developed by Drs. Oliver Harrison, Aparna Cook, Eliel Gomes and colleagues, with an educational loc from [employer]. Thrive Questionnaire Date Thrive assessed: 11/02/23 I am a: Patient What is your living situation today?: I have a steady place to live Within the past 12 months, did the food you bought not last and you didn't have the money to get more?: Never true Within the past 12 months, did you worry whether your food would run out before you got money to buy more?: Never true Do you have trouble paying for medicines?: No Do you have trouble getting transportation to medical appointments?: No Do you have trouble paying your heating and electricity bill?: No Do you have trouble taking care of your child, family member or friend?: No Do you have trouble with day-to-day activities such as bathing, preparing meals, shopping, managing finances, etc.?: No Are you currently unemployed and looking for a job?: No Are you interested in more education?: No Please select the resources that you would like help with: None Currently or been in a relationship where the following occur: no concerns reported THRIVE Score: 0 AUDIT C Alcohol Use Questionnaire (AUDIT-C) 1. How often do you have a drink containing alcohol?: Never Total Score: 0 YANIRA-7 AMB Questionnaire YANIRA-7 Date YANIRA - 7 assessed: 11/02/23 Feeling nervous, anxious, or on edge: 0 = Not at all Not being able to stop or control worryin = Not at all Worrying too much about different things: 0 = Not at all Trouble relaxin = Not at all Being so restless that it is hard to sit still: 0 = Not at all Becoming easily annoyed or irritable: 0 = Not at all Feeling afraid as if something awful might happen: 0 = Not at all Total YANIRA-7 score (0-4 normal; 5-9 mild; 10-14 moderate; 15-21 severe): 0 Source: Developed by Drs. Oliver Harrison, Aparna Cook, Eliel Gomes and colleagues, with an educational loc from [employer]. Physical exam (Primary Care) Tobacco/Smoking Status: Tobacco use Status Tobacco use date assessed 11/02/23 11/02/23 16:54 Patient Tobacco Use Status Never used Tobacco 11/02/23 16:54 e-Cigarette/Vaping Use Never Used 11/02/23 16:54 PHQ-9: PHQ-9 Score PHQ-9: Total score 0 11/02/23 16:54 Thrive Assessment: Date of Thrive Assessment Date Thrive assessed 11/02/23 11/02/23 16:54 Currently or been in a relationship where the following occur: no concerns reported Telehealth Telehealth Location of provider rendering services: practice address Location of patient: address on file Patient Identification confirmed using: Name, : Yes Telehealth method: voice only Patient verbally consented to treatment: Yes Patient verbally consented to billing insurance company: Yes Patient informed of any privacy concerns related to visit: Yes Minutes spent on Phone/Video with Pt.: 15 Assessment and Plan Assessment & Plan (1) COVID-19 virus infection: Comment: 10/07/2021, October 11 2022, 10/29/2023 Code(s): U07.1 - COVID-19 Plan: Called and antiviral sent in. For the sore throat can take Cepacol lozenges, discussed about Delsym to help with dry cough so she can rest and advised to increase oral fluids. Patient also can take Tylenol for chills and fever. Quarantine for the next 5 days and if needed to go out after need to wear mask for the next 5 days. Medications: New nirmatrelvir-ritonavir 300 mg (150 mg x 2)-100 mg (Paxlovid) take TWO 150 mg tablets of nirmatrelvir with ONE 100 mg tablet of ritonavir twice daily for 5 days PO 30 ea 0RF U07.1 - COVID-19 Coding Level of Care Code Tele Est Pt Level 3 (93818) Diagnoses COVID-19 virus infection U07.1
== END 2023-11-02 17:02 | disposition home or self-care (01) ==
LOC: HO.HMGH 16:51
PROVIDERS: PCP Internal Medicine; Visit Provider Internal Medicine
DX: U07.1 COVID-19 (principal)
CPT/HCPCS: 99213

== ENCOUNTER 2023-11-10 14:51 | Outpatient (AMB) | payer OTHER, SELFPAY ==
--- NOTE | 2023-11-10 15:10 | MHC.PC.OV ---
Vital Signs 11/10/23 15:11 Height 5 ft 2 in Weight 151 lb BMI 27.6 BP 116/62 Blood Pressure Location Lt brachial Position Sitting Pulse 85 Pulse Source Pulse Oximeter Pulse Oximetry (%) 99 Oxygen Delivery Method Room Air Intake Visit Reasons: Throat and Ear pain Outbound Telemarketing Representative Required: No Candy Attendant: Not Required per policy Accompanied by: Self / Same As Patient Allergies SEASONAL ALLERGIES Allergy (Intermediate, Uncoded 11/10/23 15:11) ITCHY EYES/RUNNY NOSE Tobacco use date assessed: 11/02/23 HPI Throat and Ear pain HPI Details 42-year-old female with a history of asthma migraine coming in for an acute problem. Patient was seen in 11/02/2023 having COVID-19 infection. did get better , now sore throat, L ear ringing, no fever, no sob, PFSH Medical History (Updated 11/02/23 @ 16:58 by Concetta Wyman MD) COVID-19 virus infection Intermittent asthma OAB (overactive bladder) Vaginal prolapse GERD (gastroesophageal reflux disease) Vitamin D deficiency Allergic rhinitis Migraine Asthma Surgical History H/O breast surgery H/O LEEP H/O tubal ligation S/P panniculectomy H/O vaginal surgery H/O breast augmentation Family History Father No problems noted. Mother No problems noted. 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 lOiver Harrison, Aparna Cook, Eliel Gomes and colleagues, with an educational loc from [employer]. Physical exam (Primary Care) Vital Signs: Last Vital Signs Pulse 85 11/10/23 15:11 BP 116/62 11/10/23 15:11 Pulse Ox 99 11/10/23 15:11 Oxygen Delivery Method Room Air 11/10/23 15:11 BMI result Body Mass Index 27.6 Tobacco/Smoking Status: Tobacco use Status Tobacco use date assessed 11/02/23 11/10/23 15:17 Patient Tobacco Use Status Never used Tobacco 11/10/23 15:17 e-Cigarette/Vaping Use Never Used 11/10/23 15:17 Thrive Assessment: Date of Thrive Assessment Date Thrive assessed 11/02/23 11/10/23 15:17 Const General: alert; No acute distress HENMT Other: Posterior pharyngeal wall is normal, TM intact bilaterally no swelling no redness Eyes Conjunctivae: conjunctivae normal Resp Auscultation: clear to auscultation bilaterally Cardio Rate: regular rate Rhythm: regular rhythm GI Inspection: Yes normal to inspection Extrem General: Yes normal to inspection and No edema Assessment and Plan Assessment & Plan (1) COVID-19 virus infection: Comment: 10/07/2021, October 11 2022, 10/29/2023 Code(s): U07.1 - COVID-19 Plan: reassurance , cepacol for sore throat, Coding Level of Care Code Est Pt Level 3 (48605) Diagnoses COVID-19 virus infection U07.1
[2023-11-10 15:11] VITALS: BP 116/62; PULSE 85; O2SAT 99; BMI 27.6
== END 2023-11-10 15:57 | disposition home or self-care (01) ==
PROVIDERS: PCP Internal Medicine; Visit Provider Internal Medicine
DX: U07.1 COVID-19 (principal)
CPT/HCPCS: 99213

== ENCOUNTER 2023-11-17 08:27 | Outpatient (REF) | payer OTHER, SELFPAY ==
[2023-11-17 08:42] LABS: MANUAL DIFF FLAG NO
[2023-11-17 08:55] LABS: Basophils Percent Auto 0.3 % (0-2); Eosinophils Absolute Auto 0.1 X10*3/uL (0.0-0.4); Hematocrit 36.9 % (37.0-47.0); Hemoglobin 11.9 g/dl (12.0-16.0); Imm Gran Abs Auto 0.01 X10*3/uL (0.00-0.03); Imm Gran Pct Auto 0.3 % (0.0-0.4); Lymphocytes Absolute Auto 1.8 X10*3/uL (1.2-4.9); Lymphocytes Percent Auto 52.9 % (20-40); Mean Corpuscular HGB Conc 32.2 g/dl (31.0-35.0); Mean Corpuscular Hemoglobin 29.1 pg (27.0-33.0); Mean Corpuscular Volume 90.2 fL (80.0-98.0); Mean Platelet Volume 11.5 fL (9.4-12.3); Monocytes Absolute Auto 0.2 X10*3/uL (0.1-1.2); Monocytes Percent Auto 6.9 % (2-11); Neutrophils Absolute Auto 1.2 x10*3/uL (2.0-8.3); Neutrophils Percent Auto 36.6 % (45-73); Platelet Count 179 X10*3/uL (160-400); Red Blood Count 4.09 X10*6/uL (4.20-5.50); Red Cell Distribution Width 11.9 % (11.0-16.0); White Blood Count 3.3 X10*3/uL (4.8-10.8)
[2023-11-17 09:31] LABS: Alanine Aminotransferase 12 U/L (0-31); Albumin Level 3.9 g/dL (3.5-5.0); Alkaline Phosphatase 81 U/L (39-117); Anion Gap 10 (12-20); Aspartate Amino Transferase 20 U/L (5-31); Bilirubin Total 0.4 mg/dL (0.0-1.0); Blood Urea Nitrogen 11 mg/dL (9-16); Calcium 9.4 mg/dL (8.4-10.2); Carbon Dioxide 27 mmol/L (22-29); Chloride 107 mmol/L (96-108); Cholesterol 149 mg/dL (<200); Estimated Glomerular Filt Rate > 60; Glucose Random 92 mg/dL (60-115); HDL Cholesterol 37 mg/dL (>40); LDL Cholesterol Calculated 101 mg/dL (<100); Magnesium 2.1 mg/dL (1.6-2.6); Potassium 3.8 mmol/L (3.3-5.1); Sodium 140 mmol/L (135-145); Triglycerides 58 mg/dL (<150)
[2023-11-17 09:40] LABS: Erythrocyte Sedimentation Rate 13 MM/HR (0-20)
[2023-11-17 09:50] LABS: Free T4 (Free Thyroxine) 1.06 ng/dL (0.71-1.85); Thyroid Stimulating Hormone 1.03 uIU/mL (0.32-4.0); Vitamin D 25-OH Total 30.8 ng/mL (>30)
[2023-11-17 10:18] LABS: Appearance Urine Clear; Color Urine Yellow; Glucose Urine UA Negative (Negative); Leukocyte Esterase Urine Trace (Negative); Nitrite Urine Negative (Negative); PH 5.5 (5.0-9.0); Specific Gravity - Urine 1.015 (1.005-1.025); UMIC TRIGGER UA YES; Urine Blood Trace (Negative); Urine Ketones Negative (Negative); Urine Protein Negative (Neg-Trace)
[2023-11-17 10:24] LABS: Folate 13.8 ng/mL (> or = 4.0); Vitamin B12 941 pg/mL (200-900)
[2023-11-17 10:24] LABS: Bacteria Urine None Seen (None Seen); Hyaline Casts Urine 0-2 /LPF (0-2); RBC Urine 0-2 /HPF (0-2); Squamous Epithelial Cell Urine 0-2 /HPF (0-2); WBC Urine 0-5 /HPF (0-5)
== END 2023-11-17 08:28 | disposition home or self-care (01) ==
LOC: HO.LAB 08:27
PROVIDERS: PCP Internal Medicine; Visit Provider Internal Medicine
DX: G43.909 Migraine, unspecified, not intractable, without status migrainosus (principal); E78.00 Pure hypercholesterolemia, unspecified
CPT/HCPCS: 36415; 80053; 80061; 81001; 82306; 82607; 82746; 83735; 84439; 84443; 85025; 85652

== ENCOUNTER 2023-11-29 11:22 | Outpatient (AMB) | payer OTHER, SELFPAY ==
[2023-11-29 11:24] VITALS: BP 102/64; PULSE 60; O2SAT 99; BMI 27.1
--- NOTE | 2023-11-29 11:24 | MHC.PC.OV ---
Vital Signs 11/29/23 11:24 Height 5 ft 2 in Weight 148 lb 0.8 oz BMI 27.1 BP 102/64 Blood Pressure Location Lt brachial Position Sitting Pulse 60 Pulse Source Pulse Oximeter Temp Source Skin Pulse Oximetry (%) 99 Oxygen Delivery Method Room Air Intake Visit Reasons: ENT referral-Throat Irritation Intake Note: pt states dry throat, voice loss [id number] with no relief. pt is requesting a referral to ENT. Philosophy Faculty Required: No Allergies SEASONAL ALLERGIES Allergy (Intermediate, Uncoded 11/29/23 11:25) ITCHY EYES/RUNNY NOSE Medication List - Last Reconciled 11/29/23 by Concetta Wyman MD albuterol sulfate 90 mcg/actuation (ProAir HFA) 2 puffs inhalation Q4-6H PRN budesonide-formoterol 160-4.5 mcg/actuation (Symbicort) 2 puffs inhalation BID fexofenadine (Heather Allergy) 180 mg PO DAILY fluticasone propionate 50 mcg/actuation 2 sprays intranasal DAILY ibuprofen 400 mg PO Q6H PRN omeprazole 20 mg PO DAILY 90 days polyethylene glycol 3350 (Miralax) 17 grams PO DAILY riboflavin (vitamin B2) 400 mg PO DAILY 30 days Tobacco use date assessed: 11/29/23 Dental Screening Dental Screen Date: 11/29/23 HPI ENT referral-Throat Irritation HPI Details 42-year-old overweight female with a history of GERD asthma coming in for an acute problem. Last seen for the COVID in October 2023. 4 weeks sore throat, noted red bump ontonsils.Patient does have asthma and uses Symbicort does have allergies and uses Heather as well as Flonase. [facility] Medical History (Updated 11/29/23 @ 11:55 by Concetta Wyman MD) COVID-19 virus infection Intermittent asthma OAB (overactive bladder) Vaginal prolapse GERD (gastroesophageal reflux disease) Vitamin D deficiency Allergic rhinitis Migraine Asthma Surgical History H/O breast surgery H/O LEEP H/O tubal ligation S/P panniculectomy H/O vaginal surgery H/O breast augmentation Family History Father No problems noted. Mother No problems noted. 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 Cognitive needs: No Hearing needs: No Vision needs: No Female Reproductive History Menstrual Age of Menarche: 12 Questionnaire Thrive Questionnaire Date Thrive assessed: 11/02/23 I am a: Patient What is your living situation today?: I have a steady place to live Within the past 12 months, did the food you bought not last and you didn't have the money to get more?: Never true Within the past 12 months, did you worry whether your food would run out before you got money to buy more?: Never true Do you have trouble paying for medicines?: No Do you have trouble getting transportation to medical appointments?: No Do you have trouble paying your heating and electricity bill?: No Do you have trouble taking care of your child, family member or friend?: No Do you have trouble with day-to-day activities such as bathing, preparing meals, shopping, managing finances, etc.?: No Are you currently unemployed and looking for a job?: No Are you interested in more education?: No Please select the resources that you would like help with: None THRIVE Score: 0 AUDIT C Alcohol Use Questionnaire (AUDIT-C) 1. How often do you have a drink containing alcohol?: Never 2. How many drinks containing alcohol do you have on a typical day when you are drinking?: 1 or 2 (0) 3. How often do you have six or more drinks on one occasion?: Never Total Score: 0 YANIRA-7 AMB Questionnaire YANIRA-7 Date YANIRA - 7 assessed: 11/02/23 Source: Developed by Drs. Oliver Harrison, Aparna Cook, Eliel Gomes and colleagues, with an educational loc from [employer]. Physical exam (Primary Care) Vital Signs: Last Vital Signs Pulse 60 11/29/23 11:24 BP 102/64 11/29/23 11:24 Pulse Ox 99 11/29/23 11:24 Oxygen Delivery Method Room Air 11/29/23 11:24 BMI result Body Mass Index 27.1 Tobacco/Smoking Status: Tobacco use Status Tobacco use date assessed 11/29/23 11/29/23 11:26 Patient Tobacco Use Status Never used Tobacco 11/29/23 11:26 e-Cigarette/Vaping Use Never Used 11/29/23 11:26 Thrive Assessment: Date of Thrive Assessment Date Thrive assessed 11/02/23 11/29/23 11:26 HENMT Other: Posterior pharyngeal wall showing cobblestoning Assessment and Plan Assessment & Plan (1) Sore throat: Code(s): J02.9 - Acute pharyngitis, unspecified Plan: Discussed that most likely the problem is more allergies. Patient would like to have referral to ear nose and throat (2) Allergic rhinitis: Code(s): J30.9 - Allergic rhinitis, unspecified Plan: Continue with allergy medication (3) Asthma: Code(s): J45.909 - Unspecified asthma, uncomplicated Qualifiers: Asthma severity: mild Asthma persistence: intermittent Asthma complication type: uncomplicated Qualified Code(s): J45.20 - Mild intermittent asthma, uncomplicated Plan: Patient has the albuterol used as needed and gets it under control with the Symbicort. Discussed the need to always rinse mouth after using this. Orders: Referrals Ear/Nose/Throat Referral J02.9 - Acute pharyngitis, unspecified Coding Level of Care Code Est Pt Level 4 (75342) Diagnoses Sore throat J02.9 Allergic rhinitis J30.9 Mild intermittent asthma without complication J45.20 Asthma severity: mild Asthma persistence: intermittent Asthma complication type: uncomplicated
== END 2023-11-29 12:03 | disposition home or self-care (01) ==
PROVIDERS: PCP Internal Medicine; Visit Provider Internal Medicine
DX: J02.9 Acute pharyngitis, unspecified (principal); J45.20 Mild intermittent asthma, uncomplicated; G43.909 Migraine, unspecified, not intractable, without status migrainosus; K21.9 Gastro-esophageal reflux disease without esophagitis
CPT/HCPCS: 99214

== ENCOUNTER 2024-04-04 11:26 | Outpatient (AMB) | payer OTHER, SELFPAY ==
[2024-04-04 11:32] VITALS: BP 100/60; PULSE 65; O2SAT 99; BMI 26.3
--- NOTE | 2024-04-04 11:32 | A.OFFPC_ITS ---
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 Implant Coordinator: Not Required per policy Accompanied by: Self / Same As Patient Allergies SEASONAL ALLERGIES Allergy (Intermediate, Uncoded 04/04/24 11:32) ITCHY EYES/RUNNY NOSE Medication List - Last Reconciled 04/04/24 by Concetta Wyman MD albuterol sulfate 90 mcg/actuation (ProAir HFA) 2 puffs inhalation Q4-6H PRN budesonide-formoterol 160-4.5 mcg/actuation (Symbicort) 2 puffs inhalation BID cholecalciferol (vitamin D3) 25 mcg PO DAILY fexofenadine (Heather Allergy) 180 mg PO DAILY ibuprofen 400 mg PO Q6H PRN omeprazole 20 mg PO DAILY 90 days polyethylene glycol 3350 (Miralax) 17 grams PO DAILY riboflavin (vitamin B2) 400 mg PO DAILY 30 days Tobacco use date assessed: 11/29/23 Dental Screening Dental Screen Date: 11/29/23 HPI PE- NEEDS HCETOR9 Juliette/ INTERPRETATION HPI Details 43-year-old female with a history of ast hma, GERD coming in for physical exam. Last seen in November 2023 for sore throat. Patient's mammogram is due as well as the up-to-date with Pap smear. Review of the notes has seen ear nose and throat November 2023 diagnosis of chronic sore throat and was reassured. L facial dermatitis lenzy burned L cheek rash. Patient is going on a cruise in May going to [facility] son just graduated and discussed about preventive measures. [facility] Medical History (Updated 04/04/24 @ 11:51 by Concetta Wyamn MD) COVID-19 virus infection Intermittent asthma OAB (overactive bladder) Vaginal prolapse GERD (gastroesophageal reflux disease) Vitamin D deficiency Allergic rhinitis Migraine Asthma Surgical History H/O breast surgery H/O LEEP H/O tubal ligation S/P panniculectomy H/O vaginal surgery H/O breast augmentation Family History Father No problems noted. Mother No problems noted. 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 1. Little interest or pleasure in doing things: not at all 2. Feeling down, depressed, or hopeless: not at all 3. Trouble falling or staying asleep, or sleeping too much: not at all 4. Feeling tired or having little energy: not at all 5. Poor appetite or overeating: not at all 6. Feeling bad about yourself - or that you are a failure or have let yourself or your family down: not at all 7. Trouble concentrating on things, such as reading the newspaper or watching television: not at all 8. Moving or speaking so slowly that other people could have noticed. Or the opposite - being so fidgety or restless that you have been moving around a lot more than usual: not at all 9. Thoughts that you would be better off or of hurting yourself in some way: not at all Total score: 0 Depression Screening Interpretation: Negative Depression Screening Done: Yes 06395 - PHQ-9 Billing: Yes Source: Developed by Drs. Oliver Harrison, Aparna Cook, Eliel Gomes and colleagues, with an educational loc from [employer]. Thrive Questionnaire Date Thrive assessed: 11/02/23 YANIRA-7 AMB Questionnaire YANIRA-7 Date YANIRA - 7 assessed: 11/02/23 Source: Developed by Drs. Oliver Harrison, Aparna Cook, Eliel Gomes and colleagues, with an educational loc from [employer]. Review of Systems Const Denies poor appetite and Denies weakness Eyes Denies no additional complaints ENT Reports Normal hearing present, Denies dizziness, Denies nasal congestion, Denies tinnitus and Denies sore throat Card Denies chest pain, Denies syncope, Denies rapid heart rate and Denies dyspnea Resp Denies cough and Denies dyspnea GI Denies change in stool character, Reports constipation, Denies diarrhea, Denies nausea and Denies vomiting Denies urinary frequency, Denies difficulty voiding and Denies dysuria Neuro Reports Normal hearing present, Denies confusion, Denies dizziness, Denies syncope and Denies weakness Psych Denies confusion Physical exam (Primary Care) Vital Signs: Last Vital Signs Pulse 65 04/04/24 11:32 BP 100/60 04/04/24 11:32 Pulse Ox 99 04/04/24 11:32 Oxygen Delivery Method Room Air 04/04/24 11:32 BMI result Body Mass Index 26.3 Tobacco/Smoking Status: Tobacco use Status Tobacco use date assessed 11/29/23 04/04/24 11:33 Patient Tobacco Use Status Never used Tobacco 04/04/24 11:33 e-Cigarette/Vaping Use Never Used 04/04/24 11:33 PHQ-9: PHQ-9 Score PHQ-9: Total score 0 04/04/24 11:33 Depression Screening Interpretation: Negative Thrive Assessment: Date of Thrive Assessment Date Thrive assessed 11/02/23 04/04/24 11:33 Const General: No confusion Orientation/consciousness: No confusion HENMT Head: Yes normocephalic Ears: external ears normal and TM's normal bilaterally Face and sinus: Yes normal facial exam Mouth: moist mucous membranes Throat: Yes tonsils normal Eyes Conjunctivae: conjunctivae normal Pupils: Equal, round and reactive pupils present and Pupil accommodation reflex normal Direct Ophthalmoscopy: normal light reflex Neck Neck: No lymphadenopathy Thyroid: Thyroid normal Chest Chest palpation & inspection: normal inspection of the chest Resp Effort & Inspection: normal respiratory effort and no audible wheezes Auscultation: clear to auscultation bilaterally, no crackles, no wheezes and lung sounds not diminished Cardio Rate: regular rate Rhythm: regular rhythm Peripheral pulses: radial pulses present and dorsalis pedis present GI Palpation (GI): no masses Auscultation: normal bowel sounds and normoactive bowel sounds Rectal Exam - Female: deferred Skin General skin exam: no rashes or lesions noted Rashes: no rashes Neuro General: No confusion Cranial nerves: Yes Equal, round and reactive pupils present and Yes Normal hearing present Cognition (Neuro): normal cognition Gait exam (Neuro): Normal gait present Motor exam (neuro): 5/5 motor strength present throughout Deep tendon reflexes (DTR's): Right brachioradialis reflex intensity grade: 2+, Left brachioradialis reflex intensity grade: 2+, Right patellar reflex intensity grade: 2+ and Left patellar reflex intensity grade: 2+ Extrem General: No edema Assessment and Plan Assessment & Plan (1) Annual physical exam: Code(s): Z00.00 - Encounter for general adult medical examination without abnormal findings Plan: Patient is advised to eat healthy, keep well hydrated, keep active and have adequate sleep. (2) Sore throat: Code(s): J02.9 - Acute pharyngitis, unspecified Plan: Patient has seen ENT and reassured her (3) GERD (gastroesophageal reflux disease): Code(s): K21.9 - Gastro-esophageal reflux disease without esophagitis Qualifiers: Esophagitis presence: without esophagitis Qualified Code(s): K21.9 - Gastro-esophageal reflux disease without esophagitis Plan: Avoid the foods that causes that usually spicy foods, tomato products, juices, coffee, soda and foods that your sensitive to. After eating do not lie down, allow 3-4 hours before in lie down. And keep the head of bed above 30 degrees to avoid the acid from going up. On omeprazole (4) Asthma: Code(s): J45.909 - Unspecified asthma, uncomplicated Qualifiers: Asthma severity: mild Asthma persistence: intermittent Asthma complication type: uncomplicated Qualified Code(s): J45.20 - Mild intermittent asthma, uncomplicated Plan: Continue with albuterol inhaler has the Symbicort and advised to rinse mouth after using the (5) Breast cancer screening by mammogram: Code(s): Z. - Encounter for screening mammogram for malignant neoplasm of breast Orders: Orders MM tomosynthesis screening BI Today Z09.25 - Encounter for screening mammogram for malignant neoplasm of breast Coding Level of Care Code Est Pt Prev Care 40-64y(70175) Diagnoses Annual physical exam Z00.00 Sore throat J02.9 Gastroesophageal reflux disease without esophagitis K21.9 Esophagitis presence: without esophagitis Mild intermittent asthma without complication J45.20 Asthma severity: mild Asthma persistence: intermittent Asthma complication type: uncomplicated Breast cancer screening by mammogram Z12.31
== END 2024-04-04 12:06 | disposition home or self-care (01) ==
PROVIDERS: PCP Internal Medicine; Visit Provider Internal Medicine
DX: Z00.00 Encounter for general adult medical examination without abnormal findings (principal); J02.9 Acute pharyngitis, unspecified; K21.9 Gastro-esophageal reflux disease without esophagitis; J45.20 Mild intermittent asthma, uncomplicated; Z12.31 Encounter for screening mammogram for malignant neoplasm of breast
CPT/HCPCS: 99396

== ENCOUNTER 2024-11-08 15:30 | Outpatient (REF) | payer OTHER, SELFPAY ==
[2024-11-09 11:31] LABS: Bacterial Vaginosis PCR POSITIVE (Negative); Candida Group PCR NOT DETECTED (Not Detect); Candida glab krusei PCR NOT DETECTED (Not Detect); Trichomonas vaginalis PCR NOT DETECTED (Not Detect)
[2024-11-09 16:49] LABS: CT PCR DETECTED (Not Detect.); NG PCR DETECTED (Not Detect.)
== END 2024-11-08 15:31 | disposition home or self-care (01) ==
LOC: HO.LAB 15:30
PROVIDERS: PCP Internal Medicine; Visit Provider Physician Assistant Medical
DX: R30.0 Dysuria (principal); R39.89 Other symptoms and signs involving the genitourinary system; F41.9 Anxiety disorder, unspecified
CPT/HCPCS: 81002; 81515; 87491; 87591; 96127; 99212

== ENCOUNTER 2024-11-08 15:30 | Outpatient (AMB) | payer OTHER, SELFPAY ==
--- NOTE | 2024-11-08 15:34 | A.OFFPC_ITS ---
Vital Signs 11/08/24 15:37 Height 5 ft 2 in Weight 134 lb 8 oz BMI 24.6 BP 100/66 Blood Pressure Location Lt brachial Position Sitting Temp 97.3 F Temp Source Temporal Artery Scan Intake Visit Reasons: Urinary tract infection Intake Note: Patient is here to follow up on possible uti. Symptoms urgency, burning sensation, possible blood in urine, clear white discharge. Galvanometer Assembler Required: No Target Setter: Not Required per policy Accompanied by: Self / Same As Patient Allergies SEASONAL ALLERGIES Allergy (Intermediate, Uncoded 11/08/24 17:18) ITCHY EYES/RUNNY NOSE Medication List - Last Reconciled 11/08/24 by Shilpa Negron PA-C albuterol sulfate 90 mcg/actuation (ProAir HFA) 2 puffs inhalation Q4-6H PRN budesonide-formoterol 160-4.5 mcg/actuation (Symbicort) 2 puffs inhalation BID cholecalciferol (vitamin D3) 25 mcg PO DAILY fexofenadine (Heather Allergy) 180 mg PO DAILY fluconazole 150 mg PO Q3D 2 doses ibuprofen 400 mg PO Q6H PRN lorazepam (Ativan) 0.5 mg PO DAILY PRN nitrofurantoin monohyd/m-cryst 100 mg (Macrobid) 100 mg PO BID 7 days omeprazole 20 mg PO DAILY 90 days phenazopyridine (Pyridium) 100 mg PO TID PRN 6 doses polyethylene glycol 3350 (Miralax) 17 grams PO DAILY riboflavin (vitamin B2) 400 mg PO DAILY 30 days scopolamine base (Transderm-Scop) 1 patch transdermal Q3D PRN Tobacco use date assessed: 11/08/24 Dental Screening Dental Screen Date: 11/08/24 Did you have a dental visit in the last 12 months?: Yes Did you have a dental problem in the last 6 months where you did not have access to dental care?: No Was dental information given to patient?: Patient has dentist [facility] Medical History (Updated 11/08/24 @ 17:20 by Shilpa Negron PA-C) Anxiety Abnormal urogenital discharge Dysuria COVID-19 virus infection Intermittent asthma OAB (overactive bladder) Vaginal prolapse GERD (gastroesophageal reflux disease) Vitamin D deficiency Allergic rhinitis Migraine Asthma Surgical History H/O breast surgery H/O LEEP H/O tubal ligation S/P panniculectomy H/O vaginal surgery H/O breast augmentation Family History Father No problems noted. Mother No problems noted. 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 1. Little interest or pleasure in doing things: not at all 2. Feeling down, depressed, or hopeless: not at all 3. Trouble falling or staying asleep, or sleeping too much: not at all 4. Feeling tired or having little energy: not at all 5. Poor appetite or overeating: not at all 6. Feeling bad about yourself - or that you are a failure or have let yourself or your family down: not at all 7. Trouble concentrating on things, such as reading the newspaper or watching television: not at all 8. Moving or speaking so slowly that other people could have noticed. Or the opposite - being so fidgety or restless that you have been moving around a lot more than usual: not at all 9. Thoughts that you would be better off or of hurting yourself in some way: not at all Total score: 0 Depression Screening Interpretation: Negative Depression Screening Done: Yes 89252 - PHQ-9 Billing: Yes Source: Developed by Drs. Oliver Harrison, Aparna Cook, Eliel Gomes and colleagues, with an educational loc from [employer]. Thrive Questionnaire Date Thrive assessed: 11/08/24 I am a: Patient What is your living situation today?: I have a steady place to live Within the past 12 months, did the food you bought not last and you didn't have the money to get more?: Never true Within the past 12 months, did you worry whether your food would run out before you got money to buy more?: Never true Do you have trouble paying for medicines?: No Do you have trouble getting transportation to medical appointments?: No Do you have trouble paying your heating and electricity bill?: No Do you have trouble taking care of your child, family member or friend?: No Do you have trouble with day-to-day activities such as bathing, preparing meals, shopping, managing finances, etc.?: No Are you currently unemployed and looking for a job?: No Are you interested in more education?: No Please select the resources that you would like help with: None Currently or been in a relationship where the following occur: No concerns reported THRIVE Score: 0 AUDIT C Alcohol Use Questionnaire (AUDIT-C) 1. How often do you have a drink containing alcohol?: Never Total Score: 0 Score Reviewed/Action Taken: Yes YANIRA-7 AMB Questionnaire YANIRA-7 Date YANIRA - 7 assessed: 11/02/23 Feeling nervous, anxious, or on edge: 0 = Not at all Not being able to stop or control worryin = Not at all Worrying too much about different things: 0 = Not at all Trouble relaxin = Not at all Being so restless that it is hard to sit still: 0 = Not at all Becoming easily annoyed or irritable: 0 = Not at all Feeling afraid as if something awful might happen: 0 = Not at all Total YANIRA-7 score (0-4 normal; 5-9 mild; 10-14 moderate; 15-21 severe): 0 Source: Developed by Drs. Oliver Harrison, Aparna Cook, Eliel Gomes and colleagues, with an educational loc from [employer]. YANIRA-7 Assessment Billing YANIRA-7 Assessment Tool: YANIRA-7 Assessment 58748 Physical exam (Primary Care) Vital Signs: Last Vital Signs Temp 97.3 F 11/08/24 15:37 BP 100/66 11/08/24 15:37 Care Plan Goal for BP management: <130/80 at goal BMI result Body Mass Index 24.6 normal bmi Tobacco/Smoking Status: Tobacco use Status Tobacco use date assessed 11/08/24 11/08/24 15:48 Patient Tobacco Use Status Never used Tobacco 11/08/24 15:34 e-Cigarette/Vaping Use Never Used 11/08/24 15:34 PHQ-9: PHQ-9 Score PHQ-9: Total score 0 11/08/24 15:56 Depression Screening Interpretation: Negative Thrive Assessment: Date of Thrive Assessment Date Thrive assessed 11/08/24 11/08/24 15:48 Currently or been in a relationship where the following occur: No concerns reported Results AMB Urinalysis Dipstick 2 UR Leukocytes Negative Last Edit by BYRON Valenzuela on 11/08/24 15:59 UR Nitrite Negative Last Edit by Isaiah Mg [facility] on 11/08/24 15:59 UR Urobilinogen 1 Last Edit by Isaiah Mg Kristopher on 11/08/24 15:59 UR Protein 100 Last Edit by Isaiah Mg A on 11/08/24 15:59 UR Ph 8.0 Last Edit by Isaiah Mg [facility] on 11/08/24 15:59 UR Blood Negative Last Edit by Isaiah Mg [facility] on 11/08/24 15:59 UR Specific [place] 1.010 Last Edit by Isaiah Mg [facility] on 11/08/24 15: 59 UR Ketone Trace Last Edit by Isaiah Mg [facility] on 11/08/24 15:59 UR Bilirubin Negative Last Edit by Isaiah Mg A on 11/08/24 15:59 UR Glucose Negative Last Edit by Isaiah Mg [facility] on 11/08/24 15:59 Results Reviewed Results Reviewed: Laboratory Last Values Urine pH (Clinic) 8.0 11/08/24 15:35 Specific [place] (Clinic) 1.010 11/08/24 15:35 Ur Protein (Clinic) 100 11/08/24 15:35 Ur Ketones (Clinic) Trace 11/08/24 15:35 Urine Blood (Clinic) Negative 11/08/24 15:35 Urine Nitrite Negative 11/08/24 15:35 Urine Bilirubin (Clinic) Negative 11/08/24 15:35 Urobilinogen (Clinic) 1 11/08/24 15:35 Leukocyte Esterase (Clinic) Negative 11/08/24 15:35 Urine Glucose (Clinic) Negative 11/08/24 15:35 Coding Level of Care Code Est Pt Level 4 (18941) Complex EM visit Add On G2211 Diagnoses Dysuria R30.0 Abnormal urogenital discharge R39.89 Anxiety F41.9 Additional Codes PHQ-9 - 50469 - PHQ-9 Billing: Yes ([id number]) YANIRA-7 Assessment Billing - YANIRA-7 Assessment Tool: YANIRA-7 Assessment 15184 ([id number]) Assessment & Plan Assessment & Plan (1) Dysuria: Code(s): R30.0 - Dysuria Category: Medical Plan: Will prescribed Macrobid, Pyridium and fluconazole. Sent a UA, gonorrhea chlamydia culture, RPR for syphilis for blood test, bacterial vaginosis and yeast swab. Will continue to monitor (2) Abnormal urogenital discharge: Code(s): R39.89 - Other symptoms and signs involving the genitourinary system Category: Medical Plan: Will prescribed Macrobid, Pyridium and fluconazole. Sent a UA, gonorrhea chlamydia culture, RPR for syphilis for blood test, bacterial vaginosis and yeast swab. Will continue to monitor (3) Anxiety: Code(s): F41.9 - Anxiety disorder, unspecified Category: Medical Plan: Patient reports she is recently traveling and gets anxiety about flying on a plane and requested a short script of Ativan. Will send a 0.5 mg script of Ativan for only traveling. Will continue to monitor Plan Plan - Initiate Macrobid empirically pending results of swab tests for vaginal infections. - Prescribe fluconazole for possible yeast infection with instructions for use if symptoms develop. - Prescribe peridium for symptomatic relief of urinary burning sensation. - Discuss hydration to address symptoms of dehydration. - Address anxiety related to air travel with a prescription for Ativan. - Recommend follow-up with primary care physician for routine health maintenance and to discuss blood work completion. Orders: Orders AMB Urinalysis Dipstick Today Z13.9 - Encounter for screening, unspecified Chlamydia Culture Today R30.0 - Dysuria, R39.89 - Other symptoms and signs involving the genitourinary system Bacterial Vaginosis Panel Today R30.0 - Dysuria, R39.89 - Other symptoms and signs involving the genitourinary system N. gonorr culture reflex susc Today R30.0 - Dysuria, R39.89 - Other symptoms and signs involving the genitourinary system RPR Monitor reflex titer Today R30.0 - Dysuria, R39.89 - Other symptoms and signs involving the genitourinary system Medications: New lorazepam (Ativan) 0.5 mg PO DAILY PRN 10 tabs 0RF anxiety nitrofurantoin monohyd/m-cryst 100 mg (Macrobid) must administer with a meal/food 100 mg PO BID 14 caps 0RF 7 days phenazopyridine (Pyridium) 100 mg PO TID PRN 6 tabs 0RF pain 6 doses Refilled fluconazole 150 mg PO Q3D 2 tabs 3RF 2 doses scopolamine base (Transderm-Scop) 1 patch transdermal Q3D PRN 10 ea 0RF nausea and vomiting Patient Instructions: Patient Instructions - Take Macrobid as prescribed twice daily. - Use fluconazole if yeast infection symptoms develop. - Take peridium for relief of urinary discomfort. - Increase water intake to improve hydration status. - Follow the plan for using Ativan as needed for air travel. - Schedule a follow-up appointment with the primary care physician. Scribe Plan - Not visible on output: History of Present Illness The patient is a 43-year-old female presenting with symptoms of vaginal discharge and burning sensation during urination. The urinary symptoms, including mild burning, began two days ago. The patient reports an increase in clear vaginal discharge without fishy odor or resemblance to cottage cheese, which makes common causes such as bacterial vaginosis and yeast infection less likely as per past personal experience. The patient denies any abnormal vaginal discharge, fever, nausea, vomiting, belly pain, or any changes suggestive of urinary or systemic infection. The discharge has been clearer than usual, but the patient is unsure about its clinical significance. There have been no new sexual partners, and she gets tested for sexually transmitted infections regularly, with previous tests being negative. The conversation revealed the patient does not feel it is a yeast infection due to the absence of typical symptoms she is familiar with. Social History - Long-term monogamous relationship - Engages in annual screening for sexually transmitted infections for personal health assurance. - Experiences anxiety during air travel, previously managed with Ativan. Review of Systems - Genitourinary: Reports burning sensation during urination. Reports increased clear vaginal discharge. Denies abnormal odor or appearance. - Constitutional: Denies fever, nausea, vomiting. Physical Exam Appearance: Alert. Oriented X3. No acute distress. Head: Normal external exam. Normocephalic. Atraumatic. Eyes: Pupils are equal, round, and reactive to light. Extraocular movements intact. Conjunctiva and sclera normal. Eyelids normal. Throat: Pharynx normal. Uvula midline. Moist mucous membranes. Neck: Normal inspection. Neck supple. Full range of motion. Cardiovascular: Normal heart rate and rhythm. Heart sound normal. No murmurs noted. Pulses normal throughout. Respiratory: No respiratory distress. Painless inspiration. Breath sounds normal. No wheezes/rales/rhonchi noted. Chest nontender. No accessory muscle usage noted or decreased air movement noted. Abdomen: Soft and nontender. No distention noted. No organomegaly noted. Mild tenderness noted upon palpation. Back: No costovertebral angle tenderness. Full range of motion noted. Skin: Skin warm and dry. Normal skin color. Normal skin turgor. No rashes/lesions/lacerations noted. Extremities: Extremities exhibit normal range of motion. Extremities nontender. Neuro: Oriented X 3. No motor deficit. No sensory deficit. Reflexes normal. Results - Labs: Urine analysis showed negative leukocytes and nitrates, indicating no UTI. Presence of ketones and mild protein suggesting mild dehydration. Plan - Initiate Macrobid empirically pending results of self-swab tests for vaginal infections. - Prescribe fluconazole for possible yeast infection with instructions for use if symptoms develop. - Prescribe peridium for symptomatic relief of urinary burning sensation. - Discuss hydration to address symptoms of dehydration. - Address anxiety related to air travel with a prescription for Ativan. - Recommend follow-up with primary care physician for routine health maintenance and to discuss blood work completion. Patient was informed and verbally consented to the use of an ambient scribe for clinic note documentation during this visit. Discussion Notes During the patient-clinician discussion, I explained the current testing results that ruled out a urinary tract infection, but addressed potential causes of the vaginal discharge and burning symptoms. I educated the patient on the intended use and effects of Macrobid for urinary symptoms as an empirical approach while awaiting further test results. The risks and benefits of self-treating potential yeast infection symptoms with fluconazole were discussed, including typical administration in two doses over three days should symptoms of a yeast infection arise. I counseled the patient extensively on increasing water intake to address dehydration revealed during urinalysis. Anxiety management regarding travel was discussed, and a prescription for Ativan was confirmed for this purpose. I emphasized the importance of continuing routine screenings and regular follow- ups with her primary care provider to monitor her overall health. Patient Instructions - Take Macrobid as prescribed twice daily. - Use fluconazole if yeast infection symptoms develop. - Take peridium for relief of urinary discomfort. - Increase water intake to improve hydration status. - Follow the plan for using Ativan as needed for air travel. - Schedule a follow-up appointment with the primary care physician.
[2024-11-08 15:37] VITALS: BP 100/66; TEMP 36.3; BMI 24.6
== END 2024-11-08 16:12 | disposition home or self-care (01) ==
LOC: HO.HMCH 15:30
PROVIDERS: PCP Internal Medicine; Visit Provider Physician Assistant Medical
DX: Z13.9 Encounter for screening, unspecified (principal)

== ENCOUNTER 2024-11-09 11:00 | Outpatient (REF) | payer OTHER, SELFPAY | END 2024-11-09 11:01 | disposition home or self-care (01) | LOC: HO.LAB 11:00 | PROVIDERS: Visit Provider Physician Assistant Medical | DX: Z13.89 Encounter for screening for other disorder (principal) ==

== ENCOUNTER 2024-11-17 09:42 | Outpatient (REF) | payer OTHER, SELFPAY ==
[2024-11-19 10:38] LABS: RPR Rapid Plasma Reagin NON-REACTIVE (NON-REACTIVE)
== END 2024-11-17 09:43 | disposition home or self-care (01) ==
LOC: HO.LAB 09:42
PROVIDERS: PCP Internal Medicine; Visit Provider Physician Assistant Medical
DX: G43.909 Migraine, unspecified, not intractable, without status migrainosus (principal); R30.0 Dysuria
CPT/HCPCS: 36415; 86592

== ENCOUNTER 2024-12-07 09:32 | Outpatient (AMB) | payer OTHER, SELFPAY ==
--- NOTE | 2024-12-07 09:34 | MHC.OFFVIS ---
Vital Signs 12/07/24 10:28 Height 5 ft 2 in Weight 134 lb BMI 24.5 BP 104/72 Intake Visit Reasons: STD screen Safety Assistant: Safety Assistant Present (Liana) Accompanied by: Self / Same As Patient Allergies SEASONAL ALLERGIES Allergy (Intermediate, Uncoded 11/08/24 17:18) ITCHY EYES/RUNNY NOSE Medication List - Last Reconciled 12/07/24 by Iwona Ochoa CNM albuterol sulfate 90 mcg/actuation (ProAir HFA) 2 puffs inhalation Q4-6H PRN budesonide-formoterol 160-4.5 mcg/actuation (Symbicort) 2 puffs inhalation BID cholecalciferol (vitamin D3) 25 mcg PO DAILY fexofenadine (Heather Allergy) 180 mg PO DAILY ibuprofen 400 mg PO Q6H PRN lorazepam (Ativan) 0.5 mg PO DAILY PRN omeprazole 20 mg PO DAILY 90 days phenazopyridine (Pyridium) 100 mg PO TID PRN 6 doses polyethylene glycol 3350 (Miralax) 17 grams PO DAILY riboflavin (vitamin B2) 400 mg PO DAILY 30 days scopolamine base (Transderm-Scop) 1 patch transdermal Q3D PRN Is last menstrual period known: Yes Last menstrual period: 11/22/24 Post menopausal: No Patient : No HPI HPI STD screen: Details: Patient is here because her partner tested positive for gonorrhea and chlamydia and she is sure that her test is going to come back positive she says they been together 3 months and she believes that he got a from a previous partner. She is going to be going with him when he goes to the STD clinic at the [facility] for history treatment today.. It was not until the very end of the visit when we were saying goodbye and talking about how her name had changed in the system because of a certificate issue that when I was looking things up I saw that she had tested positive for chlamydia and gonorrhea and BV in October but it was not done here it was done at a primary care office. She was given azithromycin doxy Cyclen and metronidazole for those infections at the time all p.o.. Patient was concerned that she was not going to be getting an injection for the gonorrhea because she is sure it is going to come back positive. I had previously said that we needed to wait to see if we would have a positive results but now that I see this previously positive in the system I am ordering her the ceftriaxone injection to be given Tuesday here in this office by the RN I am already treating her as of today for the chlamydia contact with amelie Mayo b.i.d. for a week. We will await results to see if she needs anymore metronidazole. I already discussed avoiding any intimate contact without protection and condoms for least a month to avoid anymore ping ponging back and forth. She reminded this [facility] that her oldest child delivered through the [facility] practice is 26. [facility] Medical History Anxiety Abnormal urogenital discharge Dysuria COVID-19 virus infection Intermittent asthma OAB (overactive bladder) Vaginal prolapse GERD (gastroesophageal reflux disease) Vitamin D deficiency Allergic rhinitis Migraine Asthma Surgical History H/O breast surgery H/O LEEP H/O tubal ligation S/P panniculectomy H/O vaginal surgery H/O breast augmentation Family History Father No problems noted. Mother No problems noted. 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 External Female Exam: normal external appearance and normal appearance of the urethra Speculum Exam - Vagina: normal appearance of the vagina and normal vaginal discharge Speculum Exam - Cervix: normal appearance of the cervix and Cervical os closed Assessment & Plan Assessment & Plan (1) Gonorrhea: Code(s): A54.9 - Gonococcal infection, unspecified Category: Medical (2) Chlamydia infection: Code(s): A74.9 - Chlamydial infection, unspecified Category: Medical Plan Patient is here because her partner tested positive for gonorrhea and chlamydia and she is sure that her test is going to come back positive she says they been together 3 months and she believes that he got a from a previous partner. She is going to be going with him when he goes to the STD clinic at the [facility] for history treatment today.. It was not until the very end of the visit when we were saying jerade and talking about how her name had changed in the system because of a certificate issue that when I was looking things up I saw that she had tested positive for chlamydia and gonorrhea and BV in October but it was not done here it was done at a primary care office. She was given azithromycin doxy Cyclen and metronidazole for those infections at the time all p.o.. Patient was concerned that she was not going to be getting an injection for the gonorrhea because she is sure it is going to come back positive. I had previously said that we needed to wait to see if we would have a positive results but now that I see this previously positive in the system I am ordering her the ceftriaxone injection to be given Tuesday here in this office by the RN I am already treating her as of today for the chlamydia contact with doxy Cyclen b.i.d. for a week. We will await results to see if she needs anymore metronidazole. I already discussed avoiding any intimate contact without protection and condoms for least a month to avoid anymore ping ponging back and forth. Safe sex for least a month. Partner getting treated today at the [facility] she will be. Going with him. Patient to return here Tuesday for injection of ceftriaxone based on the positive results from October that was treated orally with azithromycin. Patient believes that she had given it back to her boyfriend so we will re-treat her with ceftriaxone on Tuesday based on the October results we will also await the results from today. I did offer screening for HIV hep B hep C and syphilis but she says she was screened just last month for those based off the positive results in October for the vaginal infections and they were all negative so she does not think she needs to be rescreened for those. Orders: Orders CT NG by PCR Today A54.9 - Gonococcal infection, unspecified, A74.9 - Chlamydial infection, unspecified Bacterial Vaginosis Panel Today A54.9 - Gonococcal infection, unspecified, A74.9 - Chlamydial infection, unspecified Medications: New doxycycline hyclate 100 mg PO BID 14 tabs 0RF Patient Instructions: Safe sex for least a month. Partner getting treated today at the [facility] she will be. Going with him. Patient to return here Tuesday for injection of ceftriaxone based on the positive results from October that was treated orally with azithromycin. Coding Level of Care Code Est Pt Level 3 (39059) Diagnoses Gonorrhea A54.9 Chlamydia infection A74.9 Time Spent (min) 45 Comment Most investigating complicated history and revising plan.
[2024-12-07 10:28] VITALS: BP 104/72; BMI 24.5
== END 2024-12-07 13:57 | disposition home or self-care (01) ==
LOC: HO.HWS 09:32
PROVIDERS: PCP Internal Medicine; Visit Provider Advanced Practice Midwife
DX: A54.9 Gonococcal infection, unspecified (principal); A74.9 Chlamydial infection, unspecified
CPT/HCPCS: 99213

== ENCOUNTER 2024-12-07 09:32 | Outpatient (REF) | payer OTHER, SELFPAY ==
[2024-12-08 06:08] LABS: CT PCR NOT DETECTED (Not Detect.); NG PCR NOT DETECTED (Not Detect.)
[2024-12-08 08:42] LABS: Bacterial Vaginosis PCR POSITIVE (Negative); Candida Group PCR NOT DETECTED (Not Detect); Candida glab krusei PCR NOT DETECTED (Not Detect); Trichomonas vaginalis PCR NOT DETECTED (Not Detect)
== END 2024-12-07 09:33 | disposition home or self-care (01) ==
LOC: HO.LNP 09:32
PROVIDERS: PCP Internal Medicine; Visit Provider Advanced Practice Midwife
DX: A54.9 Gonococcal infection, unspecified (principal); A74.9 Chlamydial infection, unspecified
CPT/HCPCS: 81515; 87491; 87591; 99212; 99459

== ENCOUNTER 2024-12-11 09:24 | Outpatient (AMB) | payer OTHER, SELFPAY ==
--- NOTE | 2024-12-11 09:38 | AM.OFFVISNUR ---
Intake Visit Reasons: injection Allergies SEASONAL ALLERGIES Allergy (Intermediate, Uncoded 11/08/24 17:18) ITCHY EYES/RUNNY NOSE Nursing Note Danay is here today for inj for infection. Pt denied any allergies to medications. She was advised to remain in waiting room x 15 minutes, and to report any concerns of reaction right away. Pt verbs understanding. Office Meds ceftriaxone 500 mg solution for injection Performing Provider: Iwona Ochoa CNM Performing Location: [facility] Administered by: Cathy Van LPN on 12/11/24 09:38 Dose Route Admin Location Dispensed Lot Number Expiration Date [facility] Older Worker Specialist 500 mg IM RT. gluteus 500 mg [id number] 11/23/26 3633-7333-54 [facility] [employer] Assessment & Plan Assessment & Plan Orders: Orders AMB Ceftriaxone Injection Today A54.9 - Gonococcal infection, unspecified, A74.9 - Chlamydial infection, unspecified Medications: New ceftriaxone 500 mg IM ONCE 1 ea 0RF A54.9 - Gonococcal infection, unspecified, A74.9 - Chlamydial infection, unspecified Coding Level of Care Code Established Pt Est Pt Level 1 (94052) Patient Type Established History Problem Focused Exam Problem Focused Medical Decision Making Straight Forward Time Spent (min) 25
== END 2024-12-11 10:25 | disposition home or self-care (01) ==
LOC: HO.HWS 09:24
PROVIDERS: PCP Internal Medicine; Visit Provider Advanced Practice Midwife
DX: A54.9 Gonococcal infection, unspecified (principal); A74.9 Chlamydial infection, unspecified

== ENCOUNTER → 2024-12-11 09:24 | Outpatient (BNVA) | payer OTHER, SELFPAY | PROVIDERS: PCP Internal Medicine; Visit Provider Advanced Practice Midwife | DX: A54.9 Gonococcal infection, unspecified (principal); A74.9 Chlamydial infection, unspecified | CPT/HCPCS: 96372; 99211; J0696 ==

== ENCOUNTER 2024-12-12 14:26 | Outpatient (AMB) | payer OTHER, SELFPAY ==
--- NOTE | 2024-12-12 14:32 | MHC.OFFVIS ---
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 Rx for GC/CT-took all meds. LOGAN for GC/CT both negative 12/07/24. Regular monthly menses. Currently is sexually active. She denies vaginal itching and irritation. STI screening offered; she accepts. She tries to eat healthy and stays active with exercise. Denies family history of breast, ovarian or colon cancer. Last pap smear 2023, negative. 02/28 hgsil 8/17 ascus-lgsil 8/17 colpo red 1 07/13 ascus 02/11 ascus 09/30/22 ascus, hx Leep age 17. Mammogram: 2022. Did not return for mammography due to a bad experience. [facility] Medical History History of abnormal cervical Pap smear Anxiety Abnormal urogenital discharge Dysuria COVID-19 virus infection Intermittent asthma OAB (overactive bladder) Vaginal prolapse GERD (gastroesophageal reflux disease) Vitamin D deficiency Allergic rhinitis Migraine Asthma Surgical History H/O breast surgery H/O LEEP H/O tubal ligation S/P panniculectomy H/O vaginal surgery H/O breast augmentation Family History Father No problems noted. Mother No problems noted. 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 Cognitive needs: No Hearing needs: No Vision needs: No Female Reproductive History Menstrual Age of Menarche: 12 Duration of menses: 3-5 days Date of last menstrual period: 11/27/24 control method: permanent sterilization Permanent Sterilization: BTL Total pregnancies: 3 Full term: 3 Number of Living Children: 3 Date of last pap smear: 10/04/23 (neg pap and hpv) History of abnormal pap smear: Yes (see intake note) Date of Mammogram: 02/11/23 (Birad 1) Review of Systems Const All systems reviewed & are unremarkable except as noted in HPI and below Reports as per HPI Eyes Reports no additional complaints ENT Reports no additional complaints Card Reports no additional complaints Resp Reports no additional complaints GI Reports as per HPI and Reports no additional complaints Reports as per HPI Musc Reports no additional complaints Skin/Breast Reports as per HPI Neuro Reports no additional complaints Psych Reports no additional complaints Endo Reports no additional complaints Steven/Lymph Reports no additional complaints Aller/Immun Reports no additional complaints Physical Exam Vital Signs: Last Vital Signs BP 100/60 12/12/24 14:39 BMI result Body Mass Index 23.4 Const General: cooperative, healthy appearing, no acute distress, well developed and alert Orientation/consciousness: patient oriented x3 HEENT Head: Yes normal to inspection Eyes General: appearance normal, both eyes and all related structures Neck Neck: Yes normal visual inspection Thyroid: Thyroid normal Chest Other: bilateral implants Chest palpation & inspection: normal inspection of the chest and other (no puckering, dimpling, peau de orange, retraction, discharge, masses) Breast/axilla inspection: normal inspection of the breasts Breast/axilla palpation: normal palpation of the breasts Resp Effort & Inspection: normal respiratory effort GI Inspection: Yes normal to inspection Palpation (GI): Soft to palpation Rectal Exam - Female: deferred General: Yes bladder normal to palpation External Female Exam: normal external appearance and normal appearance of the urethra Speculum Exam - Vagina: normal appearance of the vagina, normal palpation and normal vaginal discharge Speculum Exam - Cervix: normal appearance of the cervix and normal palpation Bimanual exam- vagina & uterus: normal bimanual exam, normal palpation, uterine size normal, bladder normal to palpation, normal palpation and non-tender Bimanual Exam- Adnexa, other: no masses Skin General skin exam: no rashes or lesions noted Rashes: no rashes Neuro General: patient oriented x3 Cognition (Neuro): normal cognition Extrem General: Yes normal to inspection Psych Attitude: cooperative Thought process: Normal thought process present Assessment & Plan Assessment & Plan (1) Encounter for well woman exam with routine gynecological exam: Code(s): Z01.419 - Encounter for gynecological examination (general) (routine) without abnormal findings Category: Medical Plan Discussed: Current recommendations for pap smears per ASCCP guidelines. Breast awareness and periodic breast exams. Mammogram yearly. Strongly encouraged to continue to go for mammograms. Order placed. Maintain a healthy lifestyle including a well balanced diet and routine exercise. Use condoms for STI and prevention. Patient verbalizes understanding and agrees to the plan of care. She was given opportunity to ask questions and all questions were answered to the best of my ability. RTO in one year for annual lamp replacer examination. This note is constructed using voice recognition software. While every effort has been made to ensure accuracy, welt rougher errors may have been included. Orders: Orders MM tomosynthesis screening BI Today Z12.31 - Encounter for screening mammogram for malignant neoplasm of breast HIV Ab/Ag Today Z20.2 - Contact with and (suspected) exposure to infections with a predominantly sexual mode of transmission Hepatitis B Core Antibody Today Z20.2 - Contact with and (suspected) exposure to infections with a predominantly sexual mode of transmission Hepatitis C Antibody Reflex Today Z20.2 - Contact with and (suspected) exposure to infections with a predominantly sexual mode of transmission Coding Level of Care Code Est Pt Prev Care 40-64y(79300) Diagnoses Encounter for well woman exam with routine gynecological exam Z01.419
[2024-12-12 14:39] VITALS: BP 100/60; BMI 23.4
== END 2024-12-12 15:20 | disposition home or self-care (01) ==
LOC: HO.HWS 14:26
PROVIDERS: PCP Internal Medicine; Visit Provider Advanced Practice Midwife
DX: Z01.419 Encounter for gynecological examination (general) (routine) without abnormal findings (principal)
CPT/HCPCS: 99396; 99459

== ENCOUNTER → 2024-12-12 14:26 | Outpatient (BNVA) | payer OTHER, SELFPAY | PROVIDERS: PCP Internal Medicine; Visit Provider Advanced Practice Midwife | DX: Z01.419 Encounter for gynecological examination (general) (routine) without abnormal findings (principal) | CPT/HCPCS: 99396; 99459 ==

== ENCOUNTER 2025-02-11 10:40 | Outpatient (AMB) | payer OTHER, SELFPAY ==
[2025-02-11 12:05] VITALS: BP 112/78; PULSE 72; O2SAT 96
--- NOTE | 2025-02-11 12:05 | AM.OFFWIN_ITS ---
Intake Vital Signs 02/11/25 12:05 Weight 131 lb BP 112/78 Blood Pressure Location Lt brachial Position Sitting Pulse 72 Pulse Source Pulse Oximeter Pulse Oximetry (%) 96 Oxygen Delivery Method Room Air Intake Visit Reasons: EP yeast infection? Intake Note: Patient here for vaginal discharge that has been present for a couple of days after having intercourse. Patient Tobacco Use Status: Never used Tobacco Allergies SEASONAL ALLERGIES Allergy (Intermediate, Uncoded 02/11/25 12:20) ITCHY EYES/RUNNY NOSE Do you need a note to return to daycare/school/sports/work: No HPI HPI Comments History of Present Illness Details History of Present Illness - The patient is a 44-year-old female pr esenting with vaginal discharge x2 days. - The nature of the discharge is beige a nd creamy, without any malodor. - Symptoms began post-menstruation, whic h ended two days ago. - Notable is the absence of itching, dys uria, increased urination frequency, or systemic symptoms such as fever or pain. - Patient states her and her boyfriend t ried some new sexual activity including back door but he showered before having vaginal sex. Physical Exam General: Cooperative, healthy appearing, comfortable, no acute distress and well developed Orientation: Patient oriented x3 Limitations: No limitations Head: Normal to inspection Ears: Hearing grossly normal bilaterally Nose: Normal External nose present Face and sinus: Normal facial exam Eyes: Appearance normal, both eyes and all related structures Neck: Normal visual inspection and Yes full ROM Respiratory: Normal respiratory effort and able to speak in complete sentences. Skin: No rashes or lesions noted Neuro: Patient oriented x3 Extremities: Normal to inspection [facility] Medical History History of abnormal cervical Pap smear Anxiety Abnormal urogenital discharge Dysuria COVID-19 virus infection Intermittent asthma OAB (overactive bladder) Vaginal prolapse GERD (gastroesophageal reflux disease) Vitamin D deficiency Allergic rhinitis Migraine Asthma Surgical History H/O breast surgery H/O LEEP H/O tubal ligation S/P panniculectomy H/O vaginal surgery H/O breast augmentation Family History Father No problems noted. Mother No problems noted. 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 Cognitive needs: No Hearing needs: No Vision needs: No Female Reproductive History Menstrual Age of Menarche: 12 Review of Systems Const All systems reviewed & are unremarkable except as noted in HPI and below Physical Exam Vital Signs: Last Vital Signs Pulse 72 02/11/25 12:05 BP 112/78 02/11/25 12:05 Pulse Ox 96 02/11/25 12:05 Oxygen Delivery Method Room Air 02/11/25 12:05 Assessment & Plan Assessment & Plan (1) Yellow vaginal discharge: Code(s): N89.8 - Other specified noninflammatory disorders of vagina Plan: The patient's vaginal discharge is under investigation with tests for bacterial vaginosis, gonorrhea, and chlamydia. A urine culture is also planned to check for a urinary tract infection as UA was 1+ leuks but negative for nitrites and patient has no urinary symptoms so I will not treat for it today. Results are expected within two days, except for the urine culture, which may take longer. Follow-up will be conducted to discuss results and corresponding management options based on the outcomes of the testing. Patient was informed and verbally consented to the use of an ambient scribe for clinic note documentation during this visit. Orders: Orders CT NG by PCR Today N89.8 - Other specified noninflammatory disorders of vagina Urine Culture Today N39.0 - Urinary tract infection, site not specified Bacterial Vaginosis Panel Today N89.8 - Other specified noninflammatory disorders of vagina Coding Level of Care Code Est Pt Level 3 (86643) Diagnoses Yellow vaginal discharge N89.8
== END 2025-02-11 13:21 | disposition home or self-care (01) ==
PROVIDERS: PCP Internal Medicine; Visit Provider Physician Assistant
DX: Z13.9 Encounter for screening, unspecified (principal); N89.8 Other specified noninflammatory disorders of vagina

== ENCOUNTER 2025-02-11 10:40 | Outpatient (REF) | payer OTHER, SELFPAY ==
[2025-02-11 18:14] LABS: Bacterial Vaginosis PCR NEGATIVE (Negative); Candida Group PCR NOT DETECTED (Not Detect); Candida glab krusei PCR NOT DETECTED (Not Detect); Trichomonas vaginalis PCR DETECTED (Not Detect)
[2025-02-11 18:47] LABS: CT PCR NOT DETECTED (Not Detect.); NG PCR NOT DETECTED (Not Detect.)
== END 2025-02-11 10:41 | disposition home or self-care (01) ==
LOC: HO.LAB 10:40
PROVIDERS: Physician Assistant; PCP Internal Medicine
DX: N89.8 Other specified noninflammatory disorders of vagina (principal); N39.0 Urinary tract infection, site not specified
CPT/HCPCS: 81003; 81515; 87086; 87491; 87591; 99212

== ENCOUNTER 2025-04-05 15:09 | Outpatient (AMB) | payer OTHER, SELFPAY ==
[2025-04-05 15:13] VITALS: BP 106/66; PULSE 72; TEMP 36.1; O2SAT 100; BMI 23.9
--- NOTE | 2025-04-05 15:13 | A.OFFPC_ITS ---
Vital Signs 04/05/25 15:13 Height 5 ft 2 in Weight 130 lb 8 oz BMI 23.9 BP 106/66 Blood Pressure Location Lt brachial Position Sitting Pulse 72 Pulse Source Pulse Oximeter Temp 97.0 F Temp Source Temporal Artery Scan Pulse Oximetry (%) 100 Oxygen Delivery Method Room Air Intake Visit Reasons: Annual physical Allergies SEASONAL ALLERGIES Allergy (Intermediate, Uncoded 04/05/25 15:16) ITCHY EYES/RUNNY NOSE Medication List - Last Reconciled 04/05/25 by Concetta Wyman MD albuterol sulfate 90 mcg/actuation (ProAir HFA) 2 puffs inhalation Q4-6H PRN biotin 1 mg PO DAILY budesonide-formoterol 160-4.5 mcg/actuation (Symbicort) 2 puffs inhalation BID cholecalciferol (vitamin D3) 25 mcg PO DAILY fexofenadine (Heather Allergy) 180 mg PO DAILY ibuprofen 400 mg PO Q6H PRN omeprazole 20 mg PO DAILY 90 days riboflavin (vitamin B2) 400 mg PO DAILY 30 days scopolamine base (Transderm-Scop) 1 patch transdermal Q3D PRN Tobacco use date assessed: 04/05/25 Dental Screening Dental Screen Date: 04/05/25 Did you have a dental visit in the last 12 months?: No Did you have a dental problem in the last 6 months where you did not have access to dental care?: No Was dental information given to patient?: Patient declined [facility] Medical History History of abnormal cervical Pap smear Anxiety Abnormal urogenital discharge Dysuria COVID-19 virus infection Intermittent asthma OAB (overactive bladder) Vaginal prolapse GERD (gastroesophageal reflux disease) Vitamin D deficiency Allergic rhinitis Migraine Asthma Surgical History H/O breast surgery H/O LEEP H/O tubal ligation S/P panniculectomy H/O vaginal surgery H/O breast augmentation Family History (Updated 04/05/25 @ 15:50 by Concetta Wyman MD) Father No problems noted. 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 1. Little interest or pleasure in doing things: not at all 2. Feeling down, depressed, or hopeless: not at all 3. Trouble falling or staying asleep, or sleeping too much: more than half the days 4. Feeling tired or having little energy: not at all 5. Poor appetite or overeating: not at all 6. Feeling bad about yourself - or that you are a failure or have let yourself or your family down: not at all 7. Trouble concentrating on things, such as reading the newspaper or watching television: not at all 8. Moving or speaking so slowly that other people could have noticed. Or the opposite - being so fidgety or restless that you have been moving around a lot more than usual: not at all 9. Thoughts that you would be better off or of hurting yourself in some way: not at all Total score: 2 Depression Screening Interpretation: Negative Depression Screening Done: Yes 29722 - PHQ-9 Billing: Yes Source: Developed by Drs. Oliver Harrison, Aparna Cook, Eliel Gomes and colleagues, with an educational loc from [employer] Thrive Questionnaire Date Thrive assessed: 11/08/24 I am a: Patient What is your living situation today?: I choose not to answer this question Within the past 12 months, did the food you bought not last and you didn't have the money to get more?: I choose not to answer this question Within the past 12 months, did you worry whether your food would run out before you got money to buy more?: I choose not to answer this question Do you have trouble paying for medicines?: I choose not to answer this question Do you have trouble getting transportation to medical appointments?: I choose not to answer this question Do you have trouble paying your heating and electricity bill?: I choose not to answer this question Do you have trouble taking care of your child, family member or friend?: No Do you have trouble with day-to-day activities such as bathing, preparing meals, shopping, managing finances, etc.?: No Are you currently unemployed and looking for a job?: No Are you interested in more education?: I choose not to answer this question Please select the resources that you would like help with: None Currently or been in a relationship where the following occur: No concerns reported THRIVE Score: 0 AUDIT C Alcohol Use Questionnaire (AUDIT-C) 1. How often do you have a drink containing alcohol?: Never 3. How often do you have six or more drinks on one occasion?: Never Total Score: 0 YANIRA-7 AMB Questionnaire YANIRA-7 Date YANIRA - 7 assessed: 04/05/25 Feeling nervous, anxious, or on edge: 1 = Several days Not being able to stop or control worryin = Several days Worrying too much about different things: 1 = Several days Trouble relaxin = Several days Being so restless that it is hard to sit still: 1 = Several days Becoming easily annoyed or irritable: 1 = Several days Feeling afraid as if something awful might happen: 0 = Not at all Total YANIRA-7 score (0-4 normal; 5-9 mild; 10-14 moderate; 15-21 severe): 6 Source: Developed by Drs. Oliver Harrison, Aparna Cook, Eliel Gomes and colleagues, with an educational loc from [employer] YANIRA-7 Assessment Billing YANIRA-7 Assessment Tool: YANIRA-7 Assessment 23725 Review of Systems Const Denies poor appetite and Denies weakness Eyes Denies no additional complaints ENT Reports Normal hearing present, Denies dizziness, Denies nasal congestion, Denies tinnitus and Denies sore throat Card Denies chest pain, Denies syncope, Denies rapid heart rate and Denies dyspnea Resp Denies cough and Denies dyspnea GI Denies change in stool character, Reports constipation, Denies diarrhea, Denies nausea and Denies vomiting Denies urinary frequency, Denies difficulty voiding and Denies dysuria Neuro Reports Normal hearing present, Denies confusion, Denies dizziness, Denies syncope and Denies weakness Psych Denies confusion Physical exam (Primary Care) Vital Signs: Last Vital Signs Temp 97.0 F 04/05/25 15:13 Pulse 72 04/05/25 15:13 BP 106/66 04/05/25 15:13 Pulse Ox 100 04/05/25 15:13 Oxygen Delivery Method Room Air 04/05/25 15:13 BMI result Body Mass Index 23.9 Tobacco/Smoking Status: Tobacco use Status Tobacco use date assessed 04/05/25 04/05/25 15:19 Patient Tobacco Use Status Never used Tobacco 04/05/25 15:13 e-Cigarette/Vaping Use Never Used 04/05/25 15:13 PHQ-9: PHQ-9 Score PHQ-9: Total score 2 04/05/25 15:19 Depression Screening Interpretation: Negative Thrive Assessment: Date of Thrive Assessment Date Thrive assessed 11/08/24 04/05/25 15:13 Currently or been in a relationship where the following occur: No concerns reported Const General: No confusion Orientation/consciousness: No confusion HENMT Head: Yes normocephalic Ears: external ears normal and TM's normal bilaterally Face and sinus: Yes normal facial exam Mouth: moist mucous membranes Throat: Yes tonsils normal Eyes Conjunctivae: conjunctivae normal Pupils: Equal, round and reactive pupils present and Pupil accommodation reflex normal Direct Ophthalmoscopy: normal light reflex Neck Neck: No lymphadenopathy Thyroid: Thyroid normal Chest Chest palpation & inspection: normal inspection of the chest Resp Effort & Inspection: normal respiratory effort and no audible wheezes Auscultation: clear to auscultation bilaterally, no crackles, no wheezes and lung sounds not diminished Cardio Rate: regular rate Rhythm: regular rhythm Peripheral pulses: radial pulses present and dorsalis pedis present GI Palpation (GI): no masses Auscultation: normal bowel sounds and normoactive bowel sounds Rectal Exam - Female: deferred Skin General skin exam: no rashes or lesions noted Rashes: no rashes Neuro General: No confusion Cranial nerves: Yes Equal, round and reactive pupils present and Yes Normal hearing present Cognition (Neuro): normal cognition Gait exam (Neuro): Normal gait present Motor exam (neuro): 5/5 motor strength present throughout Deep tendon reflexes (DTR's): Right brachioradialis reflex intensity grade: 2+, Left brachioradialis reflex intensity grade: 2+, Right patellar reflex intensity grade: 2+ and Left patellar reflex intensity grade: 2+ Extrem General: No edema Coding Level of Care Code Est Pt Prev Care 40-64y(00305) Diagnoses Annual physical exam Z00.00 Mild intermittent asthma without complication J45.20 Asthma severity: mild Asthma persistence: intermittent Asthma complication type: uncomplicated Mild anemia D64.9 Gastroesophageal reflux disease without esophagitis K21.9 Esophagitis presence: without esophagitis Facial dermatitis L30.9 Breast cancer screening by mammogram Z12. Additional Codes YANIRA-7 Assessment Billing - YANIRA-7 Assessment Tool: YANIRA-7 Assessment 82101 ([id number]) PHQ-9 - 41292 - PHQ-9 Billing: Yes ([id number]) Assessment & Plan Assessment & Plan (1) Annual physical exam: Code(s): Z00.00 - Encounter for general adult medical examination without abnormal findings Category: Medical Plan: Patient is advised to eat healthy, keep well hydrated, keep active and have adequate sleep. (2) Asthma: Code(s): J45.909 - Unspecified asthma, uncomplicated Category: Medical Qualifiers: Asthma severity: mild Asthma persistence: intermittent Asthma complication type: uncomplicated Qualified Code(s): J45.20 - Mild intermittent asthma, uncomplicated Plan: Patient on albuterol and Symbicort. Reminded about rinsing mouth after using Symbicort (3) Mild anemia: Code(s): D64.9 - Anemia, unspecified Category: Medical Plan: Mild and continue to monitor (4) GERD (gastroesophageal reflux disease): Code(s): K21.9 - Gastro-esophageal reflux disease without esophagitis Category: Medical Qualifiers: Esophagitis presence: without esophagitis Qualified Code(s): K21.9 - Gastro-esophageal reflux disease without esophagitis Plan: Avoid the foods that causes that usually spicy foods, tomato products, juices, coffee, soda and foods that your sensitive to. After eating do not lie down, allow 3-4 hours before in lie down. And keep the head of bed above 30 degrees to avoid the acid from going up. (5) Facial dermatitis: Code(s): L30.9 - Dermatitis, unspecified Category: Medical (6) Breast cancer screening by mammogram: Code(s): Z12.31 - Encounter for screening mammogram for malignant neoplasm of breast Category: Medical Plan: Dermatology referral done Plan History of Present Illness The patient is a 44-year-old female presenting for an annual physical examination. She has a history of Gastroesophageal Reflux Disease (GERD), which has been managed with lifestyle modifications and medications as needed. The patient also has asthma, for which she uses albuterol and Symbicort. She was reminded to cleanse her mouth after using Symbicort to prevent oral thrush. Her migraine condition is managed with medications, though specific details were not discussed during this visit. The patient has been diagnosed with generalized anxiety disorder, which is being monitored. In January 2025, she had an urgent care visit for vaginal discharge, which was diagnosed as trichomoniasis. Her last blood work in October showed mild anemia with hemoglobin at 11.9 g/dL and hematocrit at 36.9%. Other laboratory results were within normal limits, including electrolytes, renal function, blood sugar, liver function, LDL cholesterol, vitamin B12, vitamin D, and thyroid function. Health Maintenance - Annual physical examination conducted Social History Review of Systems Physical Exam General: Cooperative, healthy appearing, comfortable, no acute distress and well developed Orientation: Patient oriented x3 Limitations: No limitations Head: Normal to inspection Ears: Hearing grossly normal bilaterally Nose: Normal external nose present Face and sinus: Normal facial exam Eyes: Appearance normal, both eyes and all related structures Neck: Normal visual inspection and Yes full ROM Respiratory: Normal respiratory effort and able to speak in complete sentences. Clear to auscultation bilaterally Cardiovascular: Regular rate and rhythm. Normal S1 and S2 GI: Normal to inspection. Soft to palpation and nontender Skin: No rashes or lesions noted Neuro: Patient oriented x3 Extremities: Normal to inspection Results - Labs: Mild anemia with hemoglobin at 11.9 g/dL and hematocrit at 36.9% - Labs: Electrolytes, renal function, blood sugar, liver function, LDL cholesterol, vitamin B12, vitamin D, and thyroid function within normal limits - Tests: Trichomoniasis detected Plan The patient will continue with her current management plan for Gastroesophageal Reflux Disease GERD), including lifestyle modifications and medications as needed. For asthma, she will continue using albuterol and Symbicort, with a reminder to cleanse her mouth after using Symbicort to prevent oral thrush. Her migraine management will continue with the current medication regimen, though specific details were not discussed. The generalized anxiety disorder will be monitored, and any necessary interventions will be considered based on her symptoms. The patient was treated for trichomoniasis following the urgent care visit in January 2025. Her mild anemia will be monitored, and dietary adjustments or supplements may be considered if necessary. Patient was informed and verbally consented to the use of an ambient scribe for clinic note documentation during this visit. Discussion Notes Patient Instructions - Continue current GERD management with lifestyle changes and medications as needed. - Use albuterol and Symbicort for asthma, and remember to rinse mouth after using Symbicort. - Follow current migraine medication regimen. - Monitor symptoms of anxiety and report any changes. - Follow up on anemia with dietary adjustments or supplements if advised. Dermatology referral done Orders: Orders MM tomosynthesis screening BI Today Z12.31 - Encounter for screening mammogram for malignant neoplasm of breast Referrals Dermatology Referral L30.9 - Dermatitis, unspecified
== END 2025-04-05 16:00 | disposition home or self-care (01) ==
LOC: HO.HMCH 15:10
PROVIDERS: PCP Internal Medicine; Visit Provider Internal Medicine
DX: Z00.00 Encounter for general adult medical examination without abnormal findings (principal); J45.20 Mild intermittent asthma, uncomplicated; D64.9 Anemia, unspecified; K21.9 Gastro-esophageal reflux disease without esophagitis; L30.9 Dermatitis, unspecified; Z12.31 Encounter for screening mammogram for malignant neoplasm of breast

== ENCOUNTER → 2025-04-05 15:09 | Outpatient (BNVA) | payer OTHER, SELFPAY | PROVIDERS: PCP Internal Medicine; Visit Provider Internal Medicine | DX: Z00.00 Encounter for general adult medical examination without abnormal findings (principal); J45.20 Mild intermittent asthma, uncomplicated; D64.9 Anemia, unspecified; K21.9 Gastro-esophageal reflux disease without esophagitis; L30.9 Dermatitis, unspecified; Z13.31 Encounter for screening for depression; Z13.39 Encounter for screening examination for other mental health and behavioral disorders | CPT/HCPCS: 96127; 99396 ==

== ENCOUNTER 2025-04-10 12:57 | Outpatient (REF) | payer OTHER, SELFPAY ==
[2025-04-11 05:10] LABS: HBc Num1 0.07 S/CO (0.00-0.79); HIV Num 1 0.05 S/CO (0.00-0.99); ~HepC Num1 0.11 S/CO (0.00-0.79); ~Hepatitis C Antibody Nonreactive (Nonreactive)
== END 2025-04-10 12:58 | disposition home or self-care (01) ==
LOC: HO.LAB 12:57
PROVIDERS: PCP Internal Medicine; Visit Provider Advanced Practice Midwife
DX: Z20.2 Contact with and (suspected) exposure to infections with a predominantly sexual mode of transmission (principal)
CPT/HCPCS: 36415; 86704; 86803; 87389

== ENCOUNTER 2025-04-11 10:28 | Outpatient (REF) | payer OTHER, SELFPAY ==
[2025-04-11 12:03] LABS: MANUAL DIFF FLAG NO
[2025-04-11 12:22] LABS: Hematocrit 33.2 % (37.0-47.0); Hemoglobin 11.1 g/dl (12.0-16.0); Imm Gran Abs Auto 0.01 X10*3/uL (0.00-0.03); Imm Gran Pct Auto 0.3 % (0.0-0.4); Lymphocytes Absolute Auto 1.7 X10*3/uL (1.2-4.9); Mean Corpuscular HGB Conc 33.4 g/dl (31.0-35.0); Mean Corpuscular Hemoglobin 30.5 pg (27.0-33.0); Mean Corpuscular Volume 91.2 fL (80.0-98.0); NRBC Abs Auto 0.000 X10*3/uL (0.0-0.012); NRBC Pct Auto 0.0 /100WBC (0.0-0.2); Platelet Count 162 X10*3/uL (160-400); Red Blood Count 3.64 X10*6/uL (4.20-5.50); White Blood Count 3.8 X10*3/uL (4.8-10.8)
[2025-04-11 12:39] LABS: INTERNATIONAL NORM RATIO 1.0 (0.9-1.1); Prothrombin Time 11.2 SEC (10.9-12.4)
[2025-04-11 12:45] LABS: Anion Gap 10 (12-20); Blood Urea Nitrogen 13 mg/dL (9-16); Calcium 8.6 mg/dL (8.4-10.2); Carbon Dioxide 26 mmol/L (22-29); Chloride 108 mmol/L (96-108); Estimated Glomerular Filt Rate > 60; Potassium 4.2 mmol/L (3.3-5.1); Sodium 140 mmol/L (135-145)
[2025-04-11 14:57] LABS: Bacterial Vaginosis PCR NEGATIVE (Negative); Candida Group PCR NOT DETECTED (Not Detect); Candida glab krusei PCR NOT DETECTED (Not Detect); Trichomonas vaginalis PCR NOT DETECTED (Not Detect)
[2025-04-11 15:29] LABS: CT PCR NOT DETECTED (Not Detect.); NG PCR NOT DETECTED (Not Detect.)
[2025-04-12 03:55] LABS: ~HepC Num1 0.10 S/CO (0.00-0.79); ~Hepatitis C Antibody Nonreactive (Nonreactive)
== END 2025-04-11 10:29 | disposition home or self-care (01) ==
LOC: HO.LAB 10:28
PROVIDERS: PCP Internal Medicine; Visit Provider Advanced Practice Midwife
DX: Z11.3 Encounter for screening for infections with a predominantly sexual mode of transmission (principal); Z20.2 Contact with and (suspected) exposure to infections with a predominantly sexual mode of transmission; R35.0 Frequency of micturition
CPT/HCPCS: 36415; 80048; 81003; 81515; 85025; 85610; 86803; 87491; 87591; 99212

== ENCOUNTER 2025-04-11 10:28 | Outpatient (AMB) | payer OTHER, SELFPAY ==
--- NOTE | 2025-04-11 10:47 | MHC.OFFVIS ---
Intake Visit Reasons: STD Testing Intake Note: Per patient,no symptoms just wants to be cautious. Firepot Operator And Tender: Firepot Operator And Tender Present (SARA Owen) Accompanied by: Self / Same As Patient Allergies SEASONAL ALLERGIES Allergy (Intermediate, Uncoded 04/05/25 15:16) ITCHY EYES/RUNNY NOSE HPI Comments Details: Patient is here today for STD testing. She admits to some frequency of urination. No odors, d/c or pelvic pain. Sexually active, not using condoms, Regular menses, on time. [facility] Medical History Possible exposure to STD Frequency of urination History of abnormal cervical Pap smear Anxiety Abnormal urogenital discharge Dysuria COVID-19 virus infection Intermittent asthma OAB (overactive bladder) Vaginal prolapse GERD (gastroesophageal reflux disease) Vitamin D deficiency Allergic rhinitis Migraine Asthma Surgical History H/O breast surgery H/O LEEP H/O tubal ligation S/P panniculectomy H/O vaginal surgery H/O breast augmentation Family History Father No problems noted. 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 Cognitive needs: No Hearing needs: No Vision needs: No Female Reproductive History Menstrual Age of Menarche: 12 Review of Systems Const All systems reviewed & are unremarkable except as noted in HPI and below Physical Exam Const General: cooperative, healthy appearing and no acute distress Orientation/consciousness: patient oriented x3 GI Inspection: Yes normal to inspection Palpation (GI): Soft to palpation and Other GI palpation findings present (Nontender) Rectal Exam - Female: visual inspection normal General: Yes bladder normal to palpation External Female Exam: normal appearance of the urethra Speculum Exam - Vagina: normal appearance of the vagina, normal palpation and normal vaginal discharge Speculum Exam - Cervix: normal appearance of the cervix and normal palpation Bimanual exam- vagina & uterus: normal bimanual exam, normal palpation, uterine size normal, bladder normal to palpation, normal palpation, uterine shape normal and non-tender Bimanual Exam- Adnexa, other: normal adnexae Neuro General: patient oriented x3 Results AMB Urinalysis, Automated UA Leukoctes Moisés/uL Last Edit by Lexie Man LPN on 04/11/25 13:17 UA Nitrite Last Edit by Lexie Man LPN on 04/11/25 13:17 UA Urobilinogen mg/dL Last Edit by Lexie Man, TIME CLOCK REPAIRER on 04/11/25 13:17 UA Protein mg/dL Last Edit by Lexie Man LPN on 04/11/25 13:17 UA pH 7.0 Last Edit by Lexie Man LPN on 04/11/25 13:17 UA Blood Alex/uL Last Edit by Lexie Man LPN on 04/11/25 13:17 UA Specific [place] 1.015 Last Edit by Lexie Man LPN on 04/11/25 13:17 UA Ketone Last Edit by Lexie Man LPN on 04/11/25 13:17 UA Bilirubin mg/dL Last Edit by Lexie Man LPN on 04/11/25 13:17 UA Glucose mg/dL Last Edit by Lexie Man LPN on 04/11/25 13:17 Results Reviewed Results Reviewed: Laboratory Last Values Urine pH (Auto) 7.0 04/11/25 13:14 Specific [place] (Auto) 1.015 04/11/25 13:14 Assessment & Plan Assessment & Plan (1) Frequency of urination: Code(s): R35.0 - Frequency of micturition Category: Medical Plan: UA- (2) Possible exposure to STD: Code(s): Z20.2 - Contact with and (suspected) exposure to infections with a predominantly sexual mode of transmission Category: Medical Plan GC and BV panel obtained. UA negative. Await results for final plan of care. Safe sex condoms use. The patient expressed understanding and agreement with the plan of care. All of her questions and concerns were addressed to the best of my ability. This note is constructed using voice recognition software. While every effort has been made to ensure accuracy, institutional research coordinator errors may have been included. Orders: Orders Bacterial Vaginosis Panel Today Z11.3 - Encounter for screening for infections with a predominantly sexual mode of transmission CT NG by PCR Vag/Cerv Today Z20.2 - Contact with and (suspected) exposure to infections with a predominantly sexual mode of transmission AMB Urinalysis Automated Today R35.0 - Frequency of micturition Coding Level of Care Code Est Pt Level 3 (75741) Diagnoses Frequency of urination R35.0 Possible exposure to STD Z20.2
== END 2025-04-11 12:06 | disposition home or self-care (01) ==
LOC: HO.HWS 10:29
PROVIDERS: PCP Internal Medicine; Visit Provider Advanced Practice Midwife
DX: R35.0 Frequency of micturition (principal); Z20.2 Contact with and (suspected) exposure to infections with a predominantly sexual mode of transmission
CPT/HCPCS: 99213

== ENCOUNTER 2025-05-15 10:01 | Outpatient (REF) | payer OTHER, SELFPAY | END 2025-05-15 10:02 | disposition home or self-care (01) | LOC: HO.MAMMO 10:01 | PROVIDERS: PCP Internal Medicine; Visit Provider Internal Medicine | DX: Z13.89 Encounter for screening for other disorder (principal) ==

== ENCOUNTER 2025-05-30 15:27 | Outpatient (REF) | payer OTHER, SELFPAY ==
[2025-05-31 11:58] LABS: Bacterial Vaginosis PCR POSITIVE (Negative); Candida Group PCR NOT DETECTED (Not Detect); Candida glab krusei PCR NOT DETECTED (Not Detect); Trichomonas vaginalis PCR NOT DETECTED (Not Detect)
== END 2025-05-30 15:28 | disposition home or self-care (01) ==
LOC: HO.LAB 15:27
PROVIDERS: PCP Internal Medicine; Visit Provider Nurse Practitioner Family
DX: N76.0 Acute vaginitis (principal); Z11.3 Encounter for screening for infections with a predominantly sexual mode of transmission; Z11.2 Encounter for screening for other bacterial diseases
CPT/HCPCS: 81003; 81025; 81515; 99212

== ENCOUNTER 2025-05-30 15:27 | Outpatient (AMB) | payer OTHER, SELFPAY ==
--- NOTE | 2025-05-30 15:36 | AM.OFFWIN_ITS ---
Intake Vital Signs 05/30/25 15:38 Height 5 ft 2 in Weight 137 lb BMI 25.1 BP 90/60 Blood Pressure Location Lt brachial Position Sitting Pulse 74 Pulse Source Pulse Oximeter Temp 98.1 F Temp Source Oral Pulse Oximetry (%) 98 Oxygen Delivery Method Room Air Intake Visit Reasons: EP Vaginal itching Intake Note: pt presents with vaginal itching for 2 weeks Patient Tobacco Use Status: Never used Tobacco Allergies Seasonal Allergies Allergy (Mild, Verified 05/30/25 15:52) Itchy Eyes Do you need a note to return to daycare/school/sports/work: No HPI HPI Comments History of Present Illness Details 44 y/o Female patient who presents to [facility] walk in clinic with c/o Vaginal Itching for 2 weeks. She had unprotected [place] with her partner who has been unfaithful to her. Reports that Partner was diagnosed with an STI back 2 months ago - he was given treatment but did not complete. Today Pt worried she might have contracted STI from the partner. Pt also asking for HCG testing - LMP: 05/23 - uses no control. [facility] Medical History (Updated 05/30/25 @ 16:23 by Myah Garcia NP) Screening examination for STI Vaginitis and vulvovaginitis Possible exposure to STD Frequency of urination History of abnormal cervical Pap smear Anxiety Abnormal urogenital discharge Dysuria COVID-19 virus infection Intermittent asthma OAB (overactive bladder) Vaginal prolapse GERD (gastroesophageal reflux disease) Vitamin D deficiency Allergic rhinitis Migraine Asthma Surgical History H/O breast surgery H/O LEEP H/O tubal ligation S/P panniculectomy H/O vaginal surgery H/O breast augmentation Family History Father No problems noted. 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 Cognitive needs: No Hearing needs: No Vision needs: No Female Reproductive History Menstrual Age of Menarche: 12 Review of Systems Const All systems reviewed & are unremarkable except as noted in HPI and below Physical Exam Vital Signs: Last Vital Signs Temp 98.1 F 05/30/25 15:38 Pulse 74 05/30/25 15:38 BP 90/60 05/30/25 15:38 Pulse Ox 98 05/30/25 15:38 Oxygen Delivery Method Room Air 05/30/25 15:38 BMI result Body Mass Index 25.1 Const General: no acute distress Nutritional Appearance: well nourished Orientation/consciousness: patient oriented x3 Other: Declined Pelvic Exam General: Yes deferred Neuro General: patient oriented x3, gait normal and moves all extremities Psych Speech and movement: Normal speech and movement present Results AMB Test Urine AMB Test Urine Negative Last Edit by Thao Ruelas MA on 05/30 16:19 AMB Urinalysis, Automated UA Leukoctes 0 Moisés/uL Last Edit by Thao Ruelas MA on 05/30/25 16:19 UA Nitrite Negative Last Edit by Thao Ruelas MA on 05/30/25 16:19 UA Urobilinogen 0.2 mg/dL Last Edit by Thao Ruelas MA on 05/30/25 16:19 UA Protein 0 mg/dL Last Edit by Thao Ruelas MA on 05/30/25 16:19 UA pH 7.5 Last Edit by Thao Ruelas MA on 05/30/25 16:19 UA Blood 0 Alex/uL Last Edit by Thao Ruelas MA on 05/30/25 16:19 UA Specific [place] 1.010 Last Edit by Thao Ruelas MA on 05/30/25 16:1 9 UA Ketone Negative Last Edit by Thao Ruelas MA on 05/30/25 16:19 UA Bilirubin 0 mg/dL Last Edit by Thao Ruelas MA on 05/30/25 16:19 UA Glucose 0 mg/dL Last Edit by Thao Ruelas MA on 05/30/25 16:19 Results Reviewed Results Reviewed: Laboratory Last Values Urine pH (Auto) 7.5 05/30/25 16:15 Specific [place] (Auto) 1.010 05/30/25 16:15 Urine Protein (Auto) 0 mg/dL 05/30/25 16:15 Glucose (UA)(Auto) 0 mg/dL 05/30/25 16:15 Urine Ketones (Auto) Negative 05/30/25 16:15 Urine Blood (Auto) 0 Alex/uL 05/30/25 16:15 Urine Nitrite (Auto) Negative 05/30/25 16:15 Urine Bilirubin (Auto) 0 mg/dL 05/30/25 16:15 Urine Urobilinogen (Auto) 0.2 mg/dL 05/30/25 16:15 Leukocyte Esterase (Auto) 0 Moisés/uL 05/30/25 16:15 Tst Clinic Negative 05/30/25 16:15 Assessment & Plan Assessment & Plan (1) Vaginitis and vulvovaginitis: Code(s): N76.0 - Acute vaginitis Plan: Ordered Vaginal Panel Ordered Fluconazole Abstain from [place] for 2 week. (2) Screening examination for STI: Code(s): Z11.3 - Encounter for screening for infections with a predominantly sexual mode of transmission Plan: Ordered CT NG Urine. Advised to practice Safe sex Orders: Orders AMB HCG Urine Test Today Z13.9 - Encounter for screening, unspecified Bacterial Vaginosis Panel Today N76.0 - Acute vaginitis, Z11.3 - Encounter for screening for infections with a predominantly sexual mode of transmission AMB Urinalysis Automated Today Z13.9 - Encounter for screening, unspecified CT NG by PCR Urine Today N76.0 - Acute vaginitis, Z11.3 - Encounter for screening for infections with a predominantly sexual mode of transmission Medications: New fluconazole 150 mg PO Q3D 2 tabs 2RF N89.8 - Other specified noninflammatory disorders of vagina Discontinued fluconazole Discontinued Reason: Patient Completed Course 150 mg PO ONCE 1 day 1 tab 0R F Coding Level of Care Code Est Pt Level 4 (18414) Diagnoses Vaginitis and vulvovaginitis N76.0 Screening examination for STI Z11.3 Time Spent (min) 20
[2025-05-30 15:38] VITALS: BP 90/60; PULSE 74; TEMP 36.7; O2SAT 98; BMI 25.1
== END 2025-05-30 17:05 | disposition home or self-care (01) ==
PROVIDERS: PCP Internal Medicine; Visit Provider Nurse Practitioner Family
DX: N76.0 Acute vaginitis (principal); Z11.3 Encounter for screening for infections with a predominantly sexual mode of transmission; Z13.9 Encounter for screening, unspecified

== ENCOUNTER 2025-06-05 08:19 | Outpatient (REF) | payer OTHER, SELFPAY ==
[2025-06-05 11:52] LABS: CT PCR Urine NOT DETECTED (Not Detect.); NG PCR Urine NOT DETECTED (Not Detect.)
== END 2025-06-05 08:20 | disposition home or self-care (01) ==
LOC: HO.HMGCLDS 08:19
PROVIDERS: PCP Internal Medicine; Visit Provider Nurse Practitioner Family
DX: Z11.3 Encounter for screening for infections with a predominantly sexual mode of transmission (principal); Z76.0 Encounter for issue of repeat prescription; Z11.8 Encounter for screening for other infectious and parasitic diseases
CPT/HCPCS: 87491; 87591

== ENCOUNTER 2025-06-07 14:13 | Outpatient (REF) | payer OTHER, SELFPAY ==
[2025-06-07 16:02] LABS: UPreg QC Valid YES
== END 2025-06-07 14:14 | disposition home or self-care (01) ==
LOC: HO.LAB 14:13
PROVIDERS: PCP Internal Medicine; Visit Provider Internal Medicine
DX: N92.0 Excessive and frequent menstruation with regular cycle (principal)
CPT/HCPCS: 36415; 81025; 84702

== ENCOUNTER 2025-07-27 12:45 | Outpatient (AMB) | payer OTHER, SELFPAY ==
[2025-07-27 13:25] VITALS: BP 94/60; PULSE 50; RESP 16; TEMP 36.7; O2SAT 100; BMI 24.5
--- NOTE | 2025-07-27 13:25 | AM.OFFWIN_ITS ---
Intake Vital Signs 3 07/27/25 13:25 Height 5 ft 2 in Weight 134 lb BMI 24.5 BP 94/60 Blood Pressure Location Rt brachial Position Sitting Respiration 16 Pulse 50 Pulse Source Pulse Oximeter Temp 98.0 F Temp Source Oral Pulse Oximetry (%) 100 Oxygen Delivery Method Room Air Intake Visit Reasons: EP Irritated left eye Intake Note: Pt is here today c/o Lt eye red and irritated ? sty Patient Tobacco Use Status: Never used Tobacco Allergies Seasonal Allergies Allergy (Mild, Verified 07/27/25 13:26) Itchy Eyes HPI EP Irritated left eye 2 HPI0 Details Patient is a 44-year-old female comes to the walk-in clinic complaining of irritation redness and swelling to her left eye [facility] Medical History Bacterial vaginosis Screening examination for STI Vaginitis and vulvovaginitis Possible exposure to STD Frequency of urination History of abnormal cervical Pap smear Anxiety Abnormal urogenital discharge Dysuria COVID-19 virus infection Intermittent asthma OAB (overactive bladder) Vaginal prolapse GERD (gastroesophageal reflux disease) Vitamin D deficiency Allergic rhinitis Migraine Asthma Surgical History H/O breast surgery H/O LEEP H/O tubal ligation S/P panniculectomy H/O vaginal surgery H/O breast augmentation Family History Father No problems noted. 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 Cognitive needs: No Hearing needs: No Vision needs: No Female Reproductive History Menstrual Age of Menarche: 12 Review of Systems Const All systems reviewed & are unremarkable except as noted in HPI and below Physical Exam Vital Signs: Last Vital Signs Temp 98.0 F 07/27/25 13:25 Pulse 50 07/27/25 13:25 Resp 16 07/27/25 13:25 BP 94/60 07/27/25 13:25 Pulse Ox 100 07/27/25 13:25 Oxygen Delivery Method Room Air 07/27/25 13:25 BMI result Body Mass Index 24.5 Eyes General: appearance abnormal, both eyes Alignment and Position: alignment normal and position normal Periorbital: periorbital findings abnormal (Mild edema to the left lower eyelid extending to the left cheek bone) left Eyelids: Yes eyelid abnormality Conjunctivae: conjunctivae normal Sclerae: sclerae normal Corneas: corneas normal Pupils: Equal, round and reactive pupils present and Pupil accommodation reflex normal EOM: EOMs intact bilaterally Eyes/upper lids images: 2 1. Internal hordeolum, with erythema, edema to the area Neuro Cranial nerves: Yes Equal, round and reactive pupils present Assessment & Plan Assessment & Plan (1) Hordeolum internum left lower eyelid: Code(s): H00.025 - Hordeolum internum left lower eyelid Plan Patient with stye to the left lower eyelid at the 11 o'clock position, as noted above. Patient reports that despite 4 days of doing warm wet compresses to the area with gentle massage, her symptoms are worsening and from yesterday to today, she reports that the edema has increased, extending now to the infraorbital area. She has intact extraocular movement and pupils are equal round and reactive to light and accommodation. To cover her for early developing, I wrote her for a course of Augmentin, and she should be followed up to be sure this is improving. I also gave her the name of an eyelid specialist, Dr. David Mcghee, in case she is able to get referral directly through her insurance, or by her PCP outpatient. Medications: New 2 amoxicillin-pot clavulanate 875-125 mg 1 tab PO BID 14 tabs 0RF 7 days Coding Level of Care Code Est Pt Level 4 (77465) Diagnoses Hordeolum internum left lower eyelid H00.025
== END 2025-07-27 14:01 | disposition home or self-care (01) ==
PROVIDERS: PCP Internal Medicine; Visit Provider Physician Assistant Medical
DX: H00.025 Hordeolum internum left lower eyelid (principal)

== ENCOUNTER → 2025-07-27 12:45 | Outpatient (BNVA) | payer OTHER, SELFPAY | PROVIDERS: PCP Internal Medicine; Visit Provider Physician Assistant Medical | DX: H00.025 Hordeolum internum left lower eyelid (principal) | CPT/HCPCS: 99212 ==

== ENCOUNTER 2025-09-17 11:53 | Outpatient (AMB) | payer OTHER, SELFPAY ==
[2025-09-17 11:58] VITALS: BP 100/64; PULSE 73; O2SAT 100; BMI 24.3
--- NOTE | 2025-09-17 11:58 | AM.OFFWIN_ITS ---
Intake Vital Signs 09/17/25 11:58 Height 5 ft 2 in Weight 133 lb BMI 24.3 BP 100/64 Blood Pressure Location Lt brachial Position Sitting Pulse 73 Pulse Source Pulse Oximeter Pulse Oximetry (%) 100 Oxygen Delivery Method Room Air Intake Visit Reasons: EP light vaginal discharge possible return of BV Intake Note: Patient presents c/o possible return of BV - patient was seen & treated back in May for BV but thinks it is still present or returned. Patient Tobacco Use Status: Never used Tobacco Allergies Seasonal Allergies Allergy (Mild, Verified 09/17/25 12:09) Itchy Eyes HPI HPI Comments History of Present Illness Details History of Present Illness - The patient is a 44-year-old female pr esenting for follow-up testing to ensure a previous infection has resolved. - She reports a history of bacterial vag inosis which was treated two to three months ago. - Currently, she denies any symptoms suc h as vaginal discharge, itching, or bu rning with urination. - She reports experiencing abdominal rach n when she holds her urine for a long duration. - She denies abd pain now, hematuria, dy suria, fever, chills, rashes or lesions. Physical Exam General: Cooperative, healthy appearing, comfortable, no acute distress and well developed Orientation: Patient oriented x3 Limitations: No limitations Respiratory: Normal respiratory effort and able to speak in complete sentences. Clear to auscultation bilaterally Cardiovascular: Regular rate and rhythm. Normal S1 and S2 GI: Normal to inspection. Soft to palpation and nontender. Negative CVA tenderness noted. Patient was informed and verbally consented to the use of an ambient scribe for clinic note documentation during this visit. [facility] Medical History Bacterial vaginosis Screening examination for STI Vaginitis and vulvovaginitis Possible exposure to STD Frequency of urination History of abnormal cervical Pap smear Anxiety Abnormal urogenital discharge Dysuria COVID-19 virus infection Intermittent asthma OAB (overactive bladder) Vaginal prolapse GERD (gastroesophageal reflux disease) Vitamin D deficiency Allergic rhinitis Migraine Asthma Surgical History H/O breast surgery H/O LEEP H/O tubal ligation S/P panniculectomy H/O vaginal surgery H/O breast augmentation Family History Father No problems noted. 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 Cognitive needs: No Hearing needs: No Vision needs: No Female Reproductive History Menstrual Age of Menarche: 12 Review of Systems Const All systems reviewed & are unremarkable except as noted in HPI and below Physical Exam Vital Signs: Last Vital Signs Pulse 73 09/17/25 11:58 BP 100/64 09/17/25 11:58 Pulse Ox 100 09/17/25 11:58 Oxygen Delivery Method Room Air 09/17/25 11:58 BMI result Body Mass Index 24.3 Assessment & Plan Assessment & Plan (1) Vaginal discharge: Code(s): N89.8 - Other specified noninflammatory disorders of vagina Plan Most likely a Follow-Up For Bacterial Vaginosis vs STD vs yeast plan - The patient is asymptomatic and presents for a [id number] for bacterial vaginosis treated 2-3 months prior. - A vaginal swab and a urine sample will be collected for testing. - Follow-up with the patient via phone call is planned for the next day with the results. - If the results are positive, treatment will be initiated. - At the patient's request, screening for sexually transmitted infections, in cluding Chlamydia, will be performed. - The necessary tests will be ordered and sent for analysis. Orders: Orders Bacterial Vaginosis Panel Today N89.8 - Other specified noninflammatory disorders of vagina CT NG by PCR Urine Today N89.8 - Other specified noninflammatory disorders of vagina Coding Level of Care Code Est Pt Level 3 (86474) Diagnoses Vaginal discharge N89.8
== END 2025-09-17 14:37 | disposition home or self-care (01) ==
PROVIDERS: PCP Internal Medicine; Visit Provider Physician Assistant Medical
DX: N89.8 Other specified noninflammatory disorders of vagina (principal)

== ENCOUNTER 2025-09-17 11:53 | Outpatient (REF) | payer OTHER, SELFPAY ==
[2025-09-17 22:30] LABS: Bacterial Vaginosis PCR NEGATIVE (Negative); Candida Group PCR NOT DETECTED (Not Detect); Candida glab krusei PCR NOT DETECTED (Not Detect); Trichomonas vaginalis PCR NOT DETECTED (Not Detect)
== END 2025-09-17 11:54 | disposition home or self-care (01) ==
LOC: HO.LAB 11:53
PROVIDERS: Physician Assistant Medical; PCP Internal Medicine
DX: N89.8 Other specified noninflammatory disorders of vagina (principal)
CPT/HCPCS: 81515

== ENCOUNTER 2025-09-24 09:15 | Outpatient (REF) | payer OTHER, SELFPAY ==
--- NOTE | 2025-09-24 09:22 | ECG_ITS ---
Test Reason : migraine Blood Pressure : */* mmHG Vent. Rate : 68 BPM Atrial Rate : 68 BPM P-R Int : 130 ms QRS Dur : 84 ms QT Int : 400 ms P-R-T Axes : 71 -28 41 degrees QTcB Int : 425 ms Normal sinus rhythm with sinus arrhythmia Possible Lateral infarct (cited on or before 09-Sep-2021) Abnormal ECG When compared with ECG of 09-Sep-2021 12:19, No significant change was found Referred By: Concetta Wyman Electronically Signed By: DYLLAN KUTRZ
[2025-09-24 09:39] LABS: MANUAL DIFF FLAG NO
[2025-09-24 10:49] LABS: Hematocrit 40.5 % (37.0-47.0); Hemoglobin 13.1 g/dl (12.0-16.0); Imm Gran Abs Auto 0.00 X10*3/uL (0.00-0.03); Imm Gran Pct Auto 0.0 % (0.0-0.4); Lymphocytes Absolute Auto 1.7 X10*3/uL (1.2-4.9); Mean Corpuscular HGB Conc 32.3 g/dl (31.0-35.0); Mean Corpuscular Hemoglobin 29.9 pg (27.0-33.0); Mean Corpuscular Volume 92.5 fL (80.0-98.0); NRBC Abs Auto 0.000 X10*3/uL (0.0-0.012); NRBC Pct Auto 0.0 /100WBC (0.0-0.2); Platelet Count 203 X10*3/uL (160-400); Red Blood Count 4.38 X10*6/uL (4.20-5.50); White Blood Count 3.7 X10*3/uL (4.8-10.8)
[2025-09-24 10:58] LABS: INTERNATIONAL NORM RATIO 1.0 (0.9-1.1); Prothrombin Time 12.1 SEC (11.2-13.5)
[2025-09-24 11:01] LABS: Partial Thromboplastin Time 28.2 SEC (26.7-34.1)
[2025-09-24 12:14] LABS: Alanine Aminotransferase 28 U/L (0-31); Albumin Level 4.6 g/dL (3.5-5.0); Alkaline Phosphatase 85 U/L (39-117); Anion Gap 11 (12-20); Aspartate Amino Transferase 34 U/L (5-31); Blood Urea Nitrogen 14 mg/dL (9-16); Calcium 9.1 mg/dL (8.4-10.2); Carbon Dioxide 26 mmol/L (22-29); Chloride 108 mmol/L (96-108); Estimated Glomerular Filt Rate > 60; Potassium 4.4 mmol/L (3.3-5.1); Sodium 141 mmol/L (135-145); Total Protein 7.7 g/dL (6.5-8.0)
== END 2025-09-24 09:16 | disposition home or self-care (01) ==
LOC: HO.LAB 09:15
PROVIDERS: PCP Internal Medicine; Visit Provider Internal Medicine
DX: Z11.4 Encounter for screening for human immunodeficiency virus [HIV] (principal); G43.909 Migraine, unspecified, not intractable, without status migrainosus
CPT/HCPCS: 36415; 80053; 85025; 85610; 85730; 87536; 87900; 93005

== ENCOUNTER → 2025-09-24 09:22 | Outpatient (BNV) | payer OTHER, SELFPAY | PROVIDERS: PCP Internal Medicine; Visit Provider Internal Medicine | DX: I49.8 Other specified cardiac arrhythmias (principal) | CPT/HCPCS: 93010 ==